=== PATIENT | male | born 1955 | race Caucasian/White ===

== ENCOUNTER 2021-02-03 14:29 | Outpatient (REF) | payer MEDICARE, MEDICAID, SELFPAY | END 2021-02-03 14:30 | disposition home or self-care (01) | LOC: HO.LAB 14:29 | PROVIDERS: PCP Internal Medicine; Visit Provider Internal Medicine | DX: Z20.822 Contact with and (suspected) exposure to COVID-19 (principal) | CPT/HCPCS: C9803; U0003; U0005 ==

== ENCOUNTER → 2022-02-11 11:33 | Outpatient (BNVA) | payer MEDICARE, MEDICAID, SELFPAY | PROVIDERS: PCP Internal Medicine; Visit Provider Urology | DX: C61 Malignant neoplasm of prostate (principal) | CPT/HCPCS: 99202 ==

== ENCOUNTER 2022-03-18 10:51 | Outpatient (REF) | payer MEDICARE, MEDICAID, SELFPAY ==
[2022-03-18 12:35] LABS: Prostate Specific Antigen 4.97 ng/mL (<0.05-4.0)
== END 2022-03-18 10:52 | disposition home or self-care (01) ==
LOC: HO.LAB 10:51
PROVIDERS: PCP Internal Medicine; Visit Provider Urology
DX: Z12.5 Encounter for screening for malignant neoplasm of prostate (principal); C61 Malignant neoplasm of prostate
CPT/HCPCS: 36415; 84153

== ENCOUNTER → 2022-04-07 09:32 | Outpatient (BNVA) | payer MEDICARE, MEDICAID, SELFPAY | PROVIDERS: PCP Internal Medicine; Visit Provider Urology | DX: C61 Malignant neoplasm of prostate (principal) | CPT/HCPCS: 99212 ==

== ENCOUNTER 2022-07-30 09:18 | Outpatient (REF) | payer MEDICARE, MEDICAID, SELFPAY ==
[2022-07-30 11:08] LABS: Prostate Specific Antigen 8.48 ng/mL (<0.05-4.0)
== END 2022-07-30 09:19 | disposition home or self-care (01) ==
LOC: HO.LAB 09:18
PROVIDERS: PCP Internal Medicine; Visit Provider Urology
DX: C61 Malignant neoplasm of prostate (principal); Z12.5 Encounter for screening for malignant neoplasm of prostate
CPT/HCPCS: 36415; 84153

== ENCOUNTER → 2022-08-06 15:24 | Outpatient (BNVA) | payer MEDICARE, MEDICAID, SELFPAY | PROVIDERS: PCP Internal Medicine; Visit Provider Urology | DX: C61 Malignant neoplasm of prostate (principal) | CPT/HCPCS: Q3014 ==

== ENCOUNTER 2022-10-04 08:43 | Day surgery (SDC) | payer MEDICARE, MEDICAID, SELFPAY ==
--- NOTE | 2022-10-01 10:44 | P.CONAN_ITS ---
Documented by User: Codi Olson NP 10/01/22 10:45 HPI - Anesthesia Eval Consult details Narrative: 67yo M for Targeted Prostate Needle Biopsy Pancreatic ca s/p whipple PMFSH Active Problems Active Problems: All Active Problems (Updated 09/29/22 @ 10:41 by Isabel Bain, RN) Prostate cancer (Acute) Past Medical History Medical History (Updated 09/29/22 @ 10:41 by Isabel Bain, RN) Anxiety Chronic abdominal pain Elevated cholesterol GERD (gastroesophageal reflux disease) Hx of hepatitis C Pancreatic cancer Prediabetes Prostate cancer Surgical History Surgical History (Updated 09/29/22 @ 10:41 by Isabel Bain RN) History of Whipple procedure Hx of appendectomy Hx of colonoscopy Hx of right inguinal hernia repair Social History Social History Patient Tobacco Use Status: Current everyday Tobacco user Tobacco use type: Cigarette Cigarettes Per Day: 12 Use of substances other than those prescribed or required for medical reasons: Yes Advance Directives: No Advance Directives Information Provided: Yes Meds Allergies Allergy/AdvReac Type Severity Reaction Status Date / Time Penicillins Allergy Mild Rash Verified 09/29/22 10:34 Home Medications Medication Instructions Recorded Confirmed Last Taken Type atorvastatin 20 mg tablet 20 mg PO DAILY 02/11/22 09/29/22 Unknown History fluoxetine 20 mg capsule 40 mg PO QAM 02/11/22 09/29/22 Unknown History ymmpaz-[id number]-bkdbvll 1 cap PO TID 02/11/22 09/29/22 Unknown History 12,000-38,000-60,000 unit capsule,delayed rel (Creon) lorazepam 0.5 mg tablet 0.5 mg PO TID PRN as directed 02/11/22 09/29/22 Unknown History pantoprazole 40 mg tablet,delayed 40 mg PO DAILY 02/11/22 09/29/22 Unknown History release hydrocodone 5 mg-acetaminophen 325 1 tab PO BID PRN Pain 04/07/22 09/29/22 Unknown History mg tablet tramadol 50 mg tablet 50 mg PO Q6H PRN Pain 04/07/22 09/29/22 Unknown History Exam Exam Date and Time: October 01, 2022 1044 Assessment and Plan Assessment Anesthesia Assessment: Chart Reviewed Documented by User: Pierre Bhagat MD 10/04/22 12:34 [facility] Past Medical History Medical History (Updated 09/29/22 @ 10:41 by Isabel Bain, RN) Anxiety Chronic abdominal pain Elevated cholesterol GERD (gastroesophageal reflux disease) Hx of hepatitis C Pancreatic cancer Prediabetes Prostate cancer Family History Family history of problems with anesthesia: No Surgical History Surgical History (Updated 09/29/22 @ 10:41 by Isabel Bain, RN) History of Whipple procedure Hx of appendectomy Hx of colonoscopy Hx of right inguinal hernia repair History of Problems with Anesthesia: No Social History Social History Patient Tobacco Use Status: Current everyday Tobacco user Tobacco use type: Cigarette Cigarettes Per Day: 12 Use of substances other than those prescribed or required for medical reasons: Yes Advance Directives: No Advance Directives Information Provided: Yes Meds Allergies Allergy/AdvReac Type Severity Reaction Status Date / Time Penicillins Allergy Mild Rash Verified 09/29/22 10:34 Home Medications Medication Instructions Recorded Confirmed Last Taken Type atorvastatin 20 mg tablet 20 mg PO DAILY 02/11/22 09/29/22 Unknown History fluoxetine 20 mg capsule 40 mg PO QAM 02/11/22 09/29/22 Unknown History qisyrf-fjyvngib-vuxgfwm 1 cap PO TID 02/11/22 09/29/22 Unknown History 12,000-38,000-60,000 unit capsule,delayed rel (Creon) lorazepam 0.5 mg tablet 0.5 mg PO TID PRN as directed 02/11/22 09/29/22 Unknown History pantoprazole 40 mg tablet,delayed 40 mg PO DAILY 02/11/22 09/29/22 Unknown History release hydrocodone 5 mg-acetaminophen 325 1 tab PO BID PRN Pain 04/07/22 09/29/22 Unknown History mg tablet tramadol 50 mg tablet 50 mg PO Q6H PRN Pain 04/07/22 09/29/22 Unknown History Exam Airway Mallampati Class: II TM Dist: >3cm Neck ROM: Full Denture: Upper Heart: ok Lungs: ok Assessment and Plan Assessment Anesthesia Assessment: Anesthesia Plan Discussed Final Anesthetic Review Family History of Problems with Anesthesia: No History of Problems with Anesthesia: No NPO: Yes ASA Class: III Final Preanesthetic Review: No Changes in Pt Med Stat, Meds/Allgs Chart Reviewed and Consent Obtained/Reviewed Patient Risk: Intermediate Procedure Risk: Low Anesthetic Plan Anesthetic Plan: GA and Agree w/ Assess. and Plan Disposition: Standard PACU
[2022-10-04 09:14] VITALS: BP 124/69; PULSE 61; RESP 18; O2SAT 98; BMI 25.1
--- NOTE | 2022-10-04 09:56 | MHC.SHP ---
Pre-Procedural Eval Section A Date of Service: 10/04/22 The patient is an INPATIENT: No Changes since office visit: No Cold of Flu in the past 2 weeks, No New Medical Problems, No Changes in Medication and No Patient answered all questions The History & Physical has been completed within 30 days and I have reviewed it.: No Section B Chief Complaint: prostate cancer Details of Present Illness: prostate cancer, targeted biopsy Relevant Social History: None Present Medications: see Short Stay Collaborative assessment Medical History: Significant History History of Previous Operations: Relevant previous surgery/procedure and date(s) Allergies: Allergies Allergy/AdvReac Type Severity Reaction Status Date / Time Penicillins Allergy Mild Rash Verified 09/29/22 10:34 Review of Systems Sugical H&P ROS: Negative: Constitution, Cardiovascular, Respiratory, Neurological, Psychiatric, Hem-Onc, Allergic/Immunologic, Gastrointestinal, Genitourinary, Musculoskeletal, Integumentary, Endocrine and Eyes/Ears/Nose/Throat Exam Surgical H&P Exam: Normal: HEENT, Normal: Heart, Normal: Lungs, Normal: Extremities, Normal: Abdomen, Normal: Skin and Normal: Neurological Plan Diagnosis/Plan: Unchanged ( fusion biopsy) I have reviewed the history and physical and performed a pertinent physical examination on my patient. No changes have occurred unless specified. Time Spent With Patient Time: Total time managing care of this patient today ____ minutes.
[2022-10-04] MEDS: Lactated Ringers 1,000 ML 100 ML IVCONT (11:18)
[2022-10-04] MEDS: levoFLOXacin 500 MG TABLET PO (11:18)
[2022-10-04 12:24] VITALS: BP 121/78; PULSE 64; RESP 16; TEMP 37.1; O2SAT 96
[2022-10-04 12:29] VITALS: BP 122/74; PULSE 60; RESP 16; O2SAT 97
[2022-10-04] MEDS: oxyCODONE HCl Immed Release 5 MG TABLET PO (12:30)
[2022-10-04] MEDS: Acetaminophen 325 MG TABLET 650 MG PO (12:30)
[2022-10-04 12:34] VITALS: BP 126/72; PULSE 59; RESP 16; O2SAT 97
[2022-10-04] MEDS: fentaNYL citrate/PF 100 MCG/2 ML VIAL 25 MCG IVPUSH ×2 (12:34→12:39)
[2022-10-04 12:39] VITALS: BP 129/74; PULSE 64; RESP 16; O2SAT 96
[2022-10-04 12:54] VITALS: BP 111/53; PULSE 64; RESP 16; TEMP 37.1; O2SAT 96
--- NOTE | 2022-12-10 12:38 | W.PM.OPN ---
Operative Note Operative Note Date of Service: 10/04/22 Narrative: Preoperative diagnosis: prostate cancer Postoperative diagnosis: prostate cancer Procedure: 1. transrectal ultrasound measurement of prostate 2. transrectal ultrasound-guided pudendal nerve block 3. MRI-US fusion image registration performed 3. transperineal ultrasound-guided prostate biopsy 12 core including targets Surgeon: Dr. Chi Nunn Anesthetic: Sedation plus local Indications for procedure: Elevated PSA 8.5 Procedure: After informed consent was verified, the patient was brought into the procedure area. Patient identity confirmed. Perioperative antibiotics confirmed. Safety pause time out performed. Anesthesia performed per protocol Ultrasound probe was placed per rectum Focalis software and hardware platform used An ultrasound-guided pudendal nerve block was performed using 10 cc of 1% lidocaine. 8 cc was placed at the base and 2 cc of the apex. Perineal injection of local. Ultrasound placement was made with grid calibration for height and prostate diameter in both the transverse and longitudinal planes. Once grid calibration was confirmed ultrasound acquisition was performed in the transverse fashion. Three dimensional ultrasound model was created. The planned needle targeting based on prior acquisition of MRI imaging was overlaid on the ultrasound images and targets confirmed through ultrasound review. Based on pre -planning evaluation 16 targets had been identified. These included 3 targets of the PI-RADS 3 prostate apex identified lesion/s.. He tolerated the procedure well. Was transferred to stable condition in the PACU. Printed instructions regarding antibiotic use and common side effects such as low-grade temperature, potential infection and bleeding were given Pathology: 12 core prostate biopsy CPT 58823 Modifier 22 for complexity of planning and procedure execution
== END 2022-10-04 14:01 | disposition home or self-care (01) ==
PROVIDERS: PCP Internal Medicine; Visit Provider Urology
PROC: (CPT 55700; principal; 2022-10-04 11:00)
DX: C61 Malignant neoplasm of prostate (principal); R97.20 Elevated prostate specific antigen [PSA]; Z85.07 Personal history of malignant neoplasm of pancreas; Z98.890 Other specified postprocedural states; K21.9 Gastro-esophageal reflux disease without esophagitis; F41.1 Generalized anxiety disorder; E78.00 Pure hypercholesterolemia, unspecified; R73.03 Prediabetes; Z86.19 Personal history of other infectious and parasitic diseases; Z79.899 Other long term (current) drug therapy; Z88.0 Allergy status to penicillin; F17.210 Nicotine dependence, cigarettes, uncomplicated
CPT/HCPCS: 55700; 88305; 88344; J2795; J3010

== ENCOUNTER → 2022-10-04 08:43 | Outpatient (BNV) | payer MEDICARE, MEDICAID, SELFPAY | PROVIDERS: PCP Internal Medicine; Visit Provider Urology | DX: C61 Malignant neoplasm of prostate (principal) | CPT/HCPCS: 55700; 76942 ==

== ENCOUNTER → 2022-10-12 15:06 | Outpatient (BNVA) | payer MEDICARE, MEDICAID, SELFPAY | PROVIDERS: PCP Internal Medicine; Visit Provider Urology ==

== ENCOUNTER 2022-10-29 13:47 | Outpatient (AMB) | payer MEDICARE, MEDICAID, SELFPAY ==
--- NOTE | 2022-10-29 13:48 | MHC.OFFVIS ---
Intake Intake Visit Reasons: post op biopsy results Intake Note: Patient is present for Telephone Biopsy results Urology Med: Finasteride Antibiotic Allergy: Penicillins Blood Thinner: None Allergies Penicillins Allergy (Mild, Verified 10/29/22 13:49) Rash HPI HPI Comments History of Present Illness Details Rey is a pleasant male. He is a patient Dr. Blum. He is seen for the following urologic conditions - prostate cancer Telemedicine Evaluation 15 min Consultation D[employer]im[employer] Yonas Video attempted Discussion regarding fusion biopsy Overall cancer remains grade group 1 with lower overall volume Continue finasteride Repeat PSA in 4 months PSA 04/08 5.0, 08/08 8.5 Prostate cancer grade group 1 5/12 cores, clinically June 202110/08 ultrasound MRI fusion biopsy [place] score: 3+3=6 Number cores positive: 1 Total number of cores: 15 PNI NAD 08/0722 grade group 1, perineural invasion Prostate cancer diagnosed and [facility] Urology 08/07 Initial PSA 4.7, T1c DiMico criteria low risk, grade group 1 Pathology findings - LMA 30%, LLA 5% PNI+, LMM 30%, LLB 30%, ELVIS 25% PNI+ - 120/1200 = 10% volume Imaging - MRI 08/07 PI-RADS 4 lesion left posterior medial apex with capsular abutment but no evidence of HEMA - prostatic volume 40 cc Past medical history significant for MRI and stenting 2008, pancreatic neoplasm 2019 with Whipple in neoadjuvant therapy [facility] Medical History Anxiety Chronic abdominal pain Elevated cholesterol GERD (gastroesophageal reflux disease) Hx of hepatitis C Pancreatic cancer Prediabetes Prostate cancer Surgical History History of Whipple procedure Hx of appendectomy Hx of colonoscopy Hx of right inguinal hernia repair Social History Patient Tobacco Use Status: Current everyday Tobacco user Tobacco use type: Cigarette Cigarettes Per Day: 12 Review of Systems Const All systems reviewed & are unremarkable except as noted in HPI and below Reports no additional complaints Resp Reports no additional complaints GI Reports no additional complaints Reports as per HPI Musc Reports no additional complaints Physical Exam Telemedicine evaluation Appropriate responses Regular breathing rate and rhythm HEENT Head: Yes normal to inspection Ears: hearing grossly normal bilaterally Eyes General: appearance normal, both eyes and all related structures Neck Neck: Yes normal visual inspection Chest Chest palpation & inspection: normal inspection of the chest Resp Effort & Inspection: normal respiratory effort and able to speak in complete sentences Assessment & Plan Assessment & Plan (1) Prostate cancer: Code(s): C61 - Malignant neoplasm of prostate Plan Four month follow-up Orders: Orders PSA,Total (Free>4and<10) 4 Months C61 - Malignant neoplasm of prostate Medications: Refilled finasteride 5 mg PO DAILY 90 days 90 tabs 1RF Patient Instructions: Imaging studies, laboratory and physical exam results were discussed and reviewed in detail. No major barriers to patient understanding were identified. An opportunity to ask questions regarding the treatment plan was provided. All questions were answered. The patient expressed understanding and agreement with the above treatment plan. The patient is aware they should contact our office by phone for worsening of their current condition or the appearance of new urologic symptoms. Compliance is encouraged with any medications and followup testing that is ordered. It is a privilege to participate in the urologic care of your patient. If you have any questions or concerns regarding treatment for the above conditions, or other urologic issues, please do not hesitate to contact me. The office telephone contact is [phone]. This note is constructed using voice recognition software. While every effort has been made to ensure accuracy sushi chef errors may have been included. Yours sincerely, Dr Chi Nunn MD, [facility] - Urology Providers of Expert, Compassionate Care for the Genitourinary System Telehealth Telehealth Location of provider rendering services: practice address Location of patient: address on file Patient Identification confirmed using: Name, : Yes Telehealth method: video Patient verbally consented to treatment: Yes Patient verbally consented to billing insurance company: Yes Patient informed of any privacy concerns related to visit: Yes Coding Level of Care Code Tele Est Pt Level 3 (38719) Diagnoses Prostate cancer C61
== END 2022-10-29 14:13 | disposition home or self-care (01) ==
LOC: HO.HUSH 13:47
PROVIDERS: PCP Internal Medicine; Visit Provider Urology
DX: C61 Malignant neoplasm of prostate (principal)
CPT/HCPCS: 99213

== ENCOUNTER → 2022-10-29 13:47 | Outpatient (BNVA) | payer MEDICARE, MEDICAID, SELFPAY | PROVIDERS: PCP Internal Medicine; Visit Provider Urology | DX: C61 Malignant neoplasm of prostate (principal) | CPT/HCPCS: Q3014 ==

== ENCOUNTER 2023-02-25 14:24 | Outpatient (REF) | payer MEDICARE, MEDICAID, SELFPAY ==
[2023-02-25 15:43] LABS: Prostate Specific Antigen 1.84 ng/mL (<0.05-4.0)
== END 2023-02-25 14:25 | disposition home or self-care (01) ==
LOC: HO.LAB 14:24
PROVIDERS: PCP Internal Medicine; Visit Provider Urology
DX: C61 Malignant neoplasm of prostate (principal); Z12.5 Encounter for screening for malignant neoplasm of prostate
CPT/HCPCS: 36415; 84153

== ENCOUNTER 2023-03-02 13:08 | Outpatient (AMB) | payer MEDICARE, MEDICAID, SELFPAY ==
--- NOTE | 2023-03-02 13:18 | A.OFFVIS_ITS ---
Intake Intake Visit Reasons: 4m/PSA(set) Intake Note: Patient is Present for Follow Up PSA Urology Medication: Finasteride Antibiotic Allergies: Penicillins Blood Thinners: None Allergies Penicillins Allergy (Mild, Verified 03/02/23 13:19) Rash HPI HPI Comments History of Present Illness Details Rey is a pleasant male. He is a patient Dr. Blum. He is seen for the following urologic conditions - prostate cancer - erectile dysfunction Significant fall in PSA 6 month follow-up labs With question of erectile dysfunction - suggest trial tadalafil - prescription provided PSA 04/08 5.0, 08/08 8.5, 03/10 1.8 Prostate cancer grade group 1 5/ cores, clinically June 202110/08 ultrasound MRI fusion biopsy [place] score: 3+3=6 Number cores positive: 1 Total number of cores: 15 PNI NAD 08/0722 grade group 1, perineural invasion Prostate cancer diagnosed and [facility] Urology 08/07 Initial PSA 4.7, T1c DiMico criteria low risk, grade group 1 Pathology findings - LMA 30%, LLA 5% PNI+, LMM 30%, LLB 30% , ELVIS 25% PNI+ - 120/1200 = 10% volume Imaging - MRI 08/07 PI-RADS 4 lesion left posteri or medial apex with capsular abutment but no evidence of HEMA - prostatic volume 40 cc Past medical history significant for MRI and stenting 2008, pancreatic neoplasm 2019 with Whipple in neoadjuvant therapy [facility] Medical History Chronic abdominal pain Anxiety Elevated cholesterol GERD (gastroesophageal reflux disease) Hx of hepatitis C Prostate cancer Prediabetes Pancreatic cancer Surgical History History of Whipple procedure Hx of right inguinal hernia repair Hx of colonoscopy Hx of appendectomy Social History Patient Tobacco Use Status: Current everyday Tobacco user Tobacco use type: Cigarette Cigarettes Per Day: 12 Review of Systems Const Denies chills and Denies fever(s) Card Reports no additional complaints and Denies syncope Resp Denies cough GI Denies abdominal pain and Denies heartburn Reports as per HPI and Denies change in libido Neuro Denies syncope Psych Denies change in libido Endo Denies change in libido Physical Exam Const General: cooperative, healthy appearing, comfortable and no acute distress Orientation/consciousness: patient oriented x3 HEENT Face and sinus: Yes normal facial exam Mouth: moist mucous membranes Neck Neck: Yes normal visual inspection, Yes full ROM and Yes trachea midline Chest Chest palpation & inspection: normal inspection of the chest Resp Effort & Inspection: normal respiratory effort, able to speak in complete sentences and no respiratory distress GI Inspection: Yes normal to inspection Back/Spine/Pelvis Cervical Spine: normal cervical lordosis Thoracic/Lumbar Spine: thoracic and lumbar spine normal to inspection Skin General skin exam: no rashes or lesions noted Neuro General: patient oriented x3, gait normal, tone normal and moves all extremities Extrem General: Yes normal to inspection and Yes capillary refill normal Assessment & Plan Assessment & Plan (1) Erectile dysfunction: Code(s): N52.9 - Male erectile dysfunction, unspecified Qualifiers: Erectile dysfunction type: vasculogenic Vasculogenic erectile dysfunction type: due to arterial insufficiency Qualified Code(s): N52.01 - Erectile dysfunction due to arterial insufficiency (2) Prostate cancer: Code(s): C61 - Malignant neoplasm of prostate Plan Trial tadalafil Six month follow-up Orders: Orders Prostate Specific Antigen 02/25/23 C61 - Malignant neoplasm of prostate Prostate Specific Antigen 6 Months C61 - Malignant neoplasm of prostate Medications: New tadalafil On demand medication take 60 minutes before intended activity 20 mg PO ONCE PRN 30 tabs 0RF sexual activity 30 days C61 - Malignant neoplasm of prostate Patient Instructions: Imaging studies, laboratory and physical exam results were discussed and reviewe d in detail. No major barriers to patient understanding were identified. An opportunity to ask questions regarding the treatment plan was provided. All questions were answered. The patient expressed understanding and agreement with the above treatment plan. The patient is aware they should contact our office by phone for worsening of their current condition or the appearance of new urologic symptoms. Compliance is encouraged with any medications and followup testing that is ordered. It is a privilege to participate in the urologic care of your patient. If you have any questions or concerns regarding treatment for the above conditions, or other urologic issues, please do not hesitate to contact me. The office telephone contact is [phone]. This note is constructed using voice recognition software. While every effort has been made to ensure accuracy entry level manager errors may have been included. Yours sincerely, Dr Chi Nunn MD, [facility] - Urology Providers of Expert, Compassionate Care for the Genitourinary System Coding Level of Care Code Est Pt Level 4 (49548) Diagnoses Erectile dysfunction due to arterial insufficiency N52.01 Erectile dysfunction type: vasculogenic Vasculogenic erectile dysfunction type: due to arterial insufficiency Prostate cancer C61
== END 2023-03-02 13:55 | disposition home or self-care (01) ==
PROVIDERS: PCP Internal Medicine; Visit Provider Urology
DX: C61 Malignant neoplasm of prostate (principal); N52.01 Erectile dysfunction due to arterial insufficiency
CPT/HCPCS: 99214

== ENCOUNTER → 2023-03-02 13:08 | Outpatient (BNVA) | payer MEDICARE, MEDICAID, SELFPAY | PROVIDERS: PCP Internal Medicine; Visit Provider Urology | DX: N52.01 Erectile dysfunction due to arterial insufficiency (principal); C61 Malignant neoplasm of prostate | CPT/HCPCS: 99212 ==

== ENCOUNTER 2023-08-25 11:34 | Outpatient (REF) | payer MEDICARE, MEDICAID, SELFPAY ==
[2023-08-25 12:58] LABS: Prostate Specific Antigen 1.52 ng/mL (<0.05-4.0)
== END 2023-08-25 11:35 | disposition home or self-care (01) ==
LOC: HO.LAB 11:34
PROVIDERS: PCP Internal Medicine; Visit Provider Urology
DX: C61 Malignant neoplasm of prostate (principal); Z12.5 Encounter for screening for malignant neoplasm of prostate
CPT/HCPCS: 36415; 84153

== ENCOUNTER 2023-08-30 13:27 | Outpatient (AMB) | payer MEDICARE, MEDICAID, SELFPAY ==
--- NOTE | 2023-08-30 13:38 | MHC.OFFVIS ---
Intake Visit Reasons: 6M PSA/Med Review(set/Tadalafil) Intake Note: Patient is Present for Follow Up Urology Medication: Finasteride, Tadalafil (Patient states he is not taking tadalafil much) Antibiotic Allergies: Penicillins Blood Thinners:none Allergies Penicillins Allergy (Mild, Verified 08/30/23 13:39) Rash Medication List - Last Reconciled 08/30/23 by Chi Nunn MD atorvastatin 20 mg PO DAILY finasteride 5 mg PO DAILY 90 days fluoxetine 40 mg PO QAM hydrocodone-acetaminophen 5-325 mg 1 tab PO BID PRN goybcr-jpvmlubi-zxxkniz 12,000-38,000 -60,000 unit (Creon) 1 cap PO TID lorazepam 0.5 mg PO TID PRN pantoprazole 40 mg PO DAILY tadalafil 20 mg PO ONCE PRN 30 days HPI Comments Details: Rey is a pleasant male. He is a patient Dr. Blum. He is seen for the following urologic conditions - prostate cancer - erectile dysfunction PSA remains low Follow-up trial tadalafil PSA 04/08 5.0, 08/08 8.5, 03/10 1.8, 08/09 1.5 Implement finasteride cycling - calendar month Has not tried tadalafil Prostate cancer grade group 1 / cores, clinically June 202110/08 ultrasound MRI fusion biopsy [place] score: 3+3=6 Number cores positive: 1 Total number of cores: 15 PNI NAD 08/0722 grade group 1, perineural invasion Prostate cancer diagnosed and [facility] U[facility] 08/07 Initial PSA 4.7, T1c DiMico criteria low risk, grade group 1 Pathology findings - LMA 30%, LLA 5% PNI+, LMM 30%, LLB 30%, ELVIS 25% PNI+ - 120/1200 = 10% volume Imaging - MRI 08/07 PI-RADS 4 lesion left posterior medial apex with capsular abutment but no evidence of HEMA - prostatic volume 40 cc Past medical history significant for MRI and stenting 2008, pancreatic neoplasm 2019 with Whipple in neoadjuvant therapy Erectile dysfunction Tadalafil 20 mg on demand PFSH Medical History Chronic abdominal pain Anxiety Elevated cholesterol GERD (gastroesophageal reflux disease) Hx of hepatitis C Prostate cancer Prediabetes Pancreatic cancer Surgical History History of Whipple procedure Hx of right inguinal hernia repair Hx of colonoscopy Hx of appendectomy Social History Patient Tobacco Use Status: Current everyday Tobacco user Tobacco use type: Cigarette Cigarettes Per Day: 12 Assessment & Plan Assessment & Plan (1) Prostate cancer: Code(s): C61 - Malignant neoplasm of prostate Category: Medical (2) Erectile dysfunction: Code(s): N52.9 - Male erectile dysfunction, unspecified Category: Medical Qualifiers: Erectile dysfunction type: vasculogenic Vasculogenic erectile dysfunction type: due to arterial insufficiency Qualified Code(s): N52.01 - Erectile dysfunction due to arterial insufficiency Plan Six-month follow-up PSA Orders: Orders Prostate Specific Antigen 6 Months C61 - Malignant neoplasm of prostate Patient Instructions: Imaging studies, laboratory and physical exam results were discussed and reviewed in detail. No major barriers to patient understanding were identified. An opportunity to ask questions regarding the treatment plan was provided. All questions were answered. The patient expressed understanding and agreement with the above treatment plan. The patient is aware they should contact our office by phone for worsening of their current condition or the appearance of new urologic symptoms. Compliance is encouraged with any medications and followup testing that is ordered. It is a privilege to participate in the urologic care of your patient. If you have any questions or concerns regarding treatment for the above conditions, or other urologic issues, please do not hesitate to contact me. The office telephone contact is [phone]. This note is constructed using voice recognition software. While every effort has been made to ensure accuracy leaf sucker operator errors may have been included. Yours sincerely, Dr Chi Nunn MD, [facility] - Urology Providers of Expert, Compassionate Care for the Genitourinary System Coding Level of Care Code Est Pt Level 3 (15836) Complex EM visit Add On G2211 Diagnoses Prostate cancer C61 Erectile dysfunction due to arterial insufficiency N52.01 Erectile dysfunction type: vasculogenic Vasculogenic erectile dysfunction type: due to arterial insufficiency
== END 2023-08-30 13:47 | disposition home or self-care (01) ==
PROVIDERS: PCP Internal Medicine; Visit Provider Urology
DX: C61 Malignant neoplasm of prostate (principal); N52.01 Erectile dysfunction due to arterial insufficiency
CPT/HCPCS: 99213; G2211

== ENCOUNTER → 2023-08-30 13:27 | Outpatient (BNVA) | payer MEDICARE, MEDICAID, SELFPAY | PROVIDERS: PCP Internal Medicine; Visit Provider Urology | DX: C61 Malignant neoplasm of prostate (principal); N52.01 Erectile dysfunction due to arterial insufficiency | CPT/HCPCS: 99212 ==

== ENCOUNTER 2024-02-09 10:58 | Outpatient (REF) | payer MEDICARE, MEDICAID, SELFPAY ==
[2024-02-09 12:36] LABS: Prostate Specific Antigen 1.85 ng/mL (<0.05-4.0)
== END 2024-02-09 10:59 | disposition home or self-care (01) ==
LOC: HO.LAB 10:58
PROVIDERS: PCP Internal Medicine; Visit Provider Urology
DX: C61 Malignant neoplasm of prostate (principal); Z12.5 Encounter for screening for malignant neoplasm of prostate
CPT/HCPCS: 36415; 84153

== ENCOUNTER 2024-02-22 14:37 | Outpatient (AMB) | payer MEDICARE, MEDICAID, SELFPAY ==
--- NOTE | 2024-02-22 14:42 | MHC.OFFVIS ---
Intake Visit Reasons: 6M/PSA(set) Intake Note: Patient is present for 6M/PSA Urology Medication:FINASTERIDE Antibiotic Allergy:PENICILLIN Blood Thinner:NONE Inspector Electromechanical Required: No Allergies Penicillins Allergy (Mild, Verified 02/22/24 14:44) Rash HPI Comments Details: Rey is a pleasant male. He is a patient Dr. Blum. He is seen for the following urologic conditions - prostate cancer - erectile dysfunction PSA remains low Follow-up trial tadalafil PSA 04/08 5.0, 08/08 8.5, 03/10 1.8, 08/09 1.5. 02/08 1.8 Implement finasteride cycling - calendar month Has not tried tadalafil Prostate cancer grade group 1 08/27 cores, clinically June 202110/08 ultrasound MRI fusion biopsy [place] score: 3+3=6 Number cores positive: 1 Total number of cores: 15 PNI NAD 08/0722 grade group 1, perineural invasion Prostate cancer diagnosed and [facility] Urology 08/07 Initial PSA 4.7, T1c DiMico criteria low risk, grade group 1 Pathology findings - LMA 30%, LLA 5% PNI+, LMM 30%, LLB 30%, ELVIS 25% PNI+ - 120/1200 = 10% volume Imaging - MRI 08/07 PI-RADS 4 lesion left posterior medial apex with capsular abutment but no evidence of HEMA - prostatic volume 40 cc Past medical history significant for MRI and stenting 2008, pancreatic neoplasm 2019 with Whipple in neoadjuvant therapy Erectile dysfunction Tadalafil 20 mg on demand PFSH Medical History Chronic abdominal pain Anxiety Elevated cholesterol GERD (gastroesophageal reflux disease) Hx of hepatitis C Prostate cancer Prediabetes Pancreatic cancer Surgical History History of Whipple procedure Hx of right inguinal hernia repair Hx of colonoscopy Hx of appendectomy Social History Patient Tobacco Use Status: Current everyday Tobacco user Tobacco use type: Cigarette Cigarettes Per Day: 12 Physical Exam Const General: cooperative, healthy appearing, comfortable and no acute distress Neck Neck: Yes normal visual inspection Chest Chest palpation & inspection: normal inspection of the chest Resp Effort & Inspection: normal respiratory effort and able to speak in complete sentences GI Inspection: Yes normal to inspection Penis: normal penis and circumcised Meatus: meatus normal Scrotum: scrotum normal, cremasteric reflex present, no hydroceles and no inguinal hernias Testes: Testes normal and epididymides normal Assessment & Plan Assessment & Plan (1) Prostate cancer: Code(s): C61 - Malignant neoplasm of prostate Category: Medical (2) Erectile dysfunction: Code(s): N52.9 - Male erectile dysfunction, unspecified Category: Medical Qualifiers: Erectile dysfunction type: vasculogenic Vasculogenic erectile dysfunction type: due to arterial insufficiency Qualified Code(s): N52.01 - Erectile dysfunction due to arterial insufficiency Plan Six-month follow-up PSA Orders: Orders Prostate Specific Antigen 6 Months C61 - Malignant neoplasm of prostate Patient Instructions: Imaging studies, laboratory and physical exam results were discussed and reviewed in detail. No major barriers to patient understanding were identified. An opportunity to ask questions regarding the treatment plan was provided. All questions were answered. The patient expressed understanding and agreement with the above treatment plan. The patient is aware they should contact our office by phone for worsening of their current condition or the appearance of new urologic symptoms. Compliance is encouraged with any medications and followup testing that is ordered. It is a privilege to participate in the urologic care of your patient. If you have any questions or concerns regarding treatment for the above conditions, or other urologic issues, please do not hesitate to contact me. The office telephone contact is [phone]. This note is constructed using voice recognition software. While every effort has been made to ensure accuracy supervisor motor vehicle assembly errors may have been included. Yours sincerely, Dr Chi Nunn MD, [facility] - Urology Providers of Expert, Compassionate Care for the Genitourinary System Coding Level of Care Code Est Pt Level 3 (33291) Diagnoses Prostate cancer C61 Erectile dysfunction due to arterial insufficiency N52.01 Erectile dysfunction type: vasculogenic Vasculogenic erectile dysfunction type: due to arterial insufficiency
== END 2024-02-22 15:27 | disposition home or self-care (01) ==
LOC: HO.HUSH 14:38
PROVIDERS: PCP Internal Medicine; Visit Provider Urology
DX: C61 Malignant neoplasm of prostate (principal); N52.01 Erectile dysfunction due to arterial insufficiency
CPT/HCPCS: 99213

== ENCOUNTER → 2024-02-22 14:37 | Outpatient (BNVA) | payer MEDICARE, MEDICAID, SELFPAY | PROVIDERS: PCP Internal Medicine; Visit Provider Urology | DX: C61 Malignant neoplasm of prostate (principal); N52.01 Erectile dysfunction due to arterial insufficiency | CPT/HCPCS: 99212 ==

== ENCOUNTER 2024-08-16 11:53 | Outpatient (REF) | payer MEDICARE, MEDICAID, SELFPAY ==
[2024-08-16 12:53] LABS: Prostate Specific Antigen 2.65 ng/mL (<0.05-4.0)
== END 2024-08-16 11:54 | disposition home or self-care (01) ==
LOC: HO.LAB 11:53
PROVIDERS: PCP Internal Medicine; Visit Provider Urology
DX: C61 Malignant neoplasm of prostate (principal); Z12.5 Encounter for screening for malignant neoplasm of prostate
CPT/HCPCS: 36415; 84153

== ENCOUNTER 2024-08-22 12:58 | Outpatient (AMB) | payer MEDICARE, MEDICAID, SELFPAY ==
--- NOTE | 2024-08-22 12:59 | A.OFFVIS_ITS ---
Intake Visit Reasons: 6m/PSA Intake Note: Patient is present for 6M/PSA Urology Medication:FINASTERIDE Antibiotic Allergy:PENICILLINS Blood Thinner:NONE Demolition Worker Required: No Allergies Penicillins Allergy (Mild, Verified 08/22/24 13:00) Rash HPI Comments Details: Rey is a pleasant male. He is a patient Dr. Blum. He is seen for the following urologic conditions - prostate cancer - erectile dysfunction Telemedicine Evaluation 15 min Consultation [employer] PSA remains low Happy with current situation PSA 04/08 5.0, 08/08 8.5, 03/10 1.8, 08/09 1.5. 02/08 1.8, 09/09 2.6 Implement finasteride cycling - calendar Prostate cancer grade group 1 08/27 cores, clinically June 202110/08 ultrasound MRI fusion biopsy [place] score: 3+3=6 Number cores positive: 1 Total number of cores: 15 PNI NAD 08/0722 grade group 1, perineural invasion Prostate cancer diagnosed and [facility] Urology 08/07 Initial PSA 4.7, T1c DiMico criteria low risk, grade group 1 Pathology findings - LMA 30%, LLA 5% PNI+, LMM 30%, LLB 30%, ELVIS 25% PNI+ - 120/1200 = 10% volume Imaging - MRI 08/07 PI-RADS 4 lesion left posterior medial apex with capsular abutment but no evidence of HEMA - prostatic volume 40 cc Past medical history significant for MRI and stenting 2008, pancreatic neoplasm 2019 with Whipple in neoadjuvant therapy Erectile dysfunction Tadalafil 20 mg on demand PFSH Medical History Chronic abdominal pain Anxiety Elevated cholesterol GERD (gastroesophageal reflux disease) Hx of hepatitis C Prostate cancer Prediabetes Pancreatic cancer Surgical History History of Whipple procedure Hx of right inguinal hernia repair Hx of colonoscopy Hx of appendectomy Social History Patient Tobacco Use Status: Current everyday Tobacco user Tobacco use type: Cigarette Cigarettes Per Day: 12 Review of Systems Const All systems reviewed & are unremarkable except as noted in HPI and below Reports no additional complaints Resp Reports no additional complaints GI Reports no additional complaints Reports as per HPI [facility] [place] Reports no additional complaints Physical Exam Telemedicine evaluation Appropriate responses Regular breathing rate and rhythm HEENT Head: Yes normal to inspection Ears: hearing grossly normal bilaterally Eyes General: appearance normal, both eyes and all related structures Neck Neck: Yes normal visual inspection Chest Chest palpation & inspection: normal inspection of the chest Resp Effort & Inspection: normal respiratory effort and able to speak in complete sentences Telehealth Telehealth Location of provider rendering services: practice address Location of patient: address on file Patient Identification confirmed using: Name, : Yes Telehealth method: voice only Patient verbally consented to treatment: Yes Patient verbally consented to billing insurance company: Yes Patient informed of any privacy concerns related to visit: Yes Assessment & Plan Assessment & Plan (1) Prostate cancer: Code(s): C61 - Malignant neoplasm of prostate Category: Medical (2) Erectile dysfunction: Code(s): N52.9 - Male erectile dysfunction, unspecified Category: Medical Qualifiers: Erectile dysfunction type: vasculogenic Vasculogenic erectile dysfunction type: due to arterial insufficiency Qualified Code(s): N52.01 - Erectile dysfunction due to arterial insufficiency Plan Five month follow-up PSA Orders: Orders Prostate Specific Antigen 5 Months C61 - Malignant neoplasm of prostate Medications: Refilled finasteride 5 mg PO DAILY 90 days 90 tabs 1RF Patient Instructions: This note is constructed using voice recognition software. While every effort has been made to ensure accuracy rn unit manager errors may have been included. Imaging studies, laboratory and physical exam results were discussed and reviewed in detail. No major barriers to patient understanding were identified. An opportunity to ask questions regarding the treatment plan was provided. All questions were answered. The patient expressed understanding and agreement with the above treatment plan. The patient is aware they should contact our office by phone for worsening of their current condition or the appearance of new urologic symptoms. Compliance is encouraged with any medications and followup testing that is ordered. It is a privilege to participate in the urologic care of your patient. If you have any questions or concerns regarding treatment for the above conditions, or other urologic issues, please do not hesitate to contact me. The office telephone contact is [phone]. Sincerely, Dr Chi Nunn MD, [facility] - Urology Compassionate Specialist Care for the Genitourinary System Coding Level of Care Code Tele Est Pt Level 3 (61668) Complex EM visit Add On G2211 Diagnoses Prostate cancer C61 Erectile dysfunction due to arterial insufficiency N52.01 Erectile dysfunction type: vasculogenic Vasculogenic erectile dysfunction type: due to arterial insufficiency
== END 2024-08-22 13:42 | disposition home or self-care (01) ==
LOC: HO.HUSH 12:58
PROVIDERS: PCP Internal Medicine; Visit Provider Urology
DX: C61 Malignant neoplasm of prostate (principal); N52.01 Erectile dysfunction due to arterial insufficiency
CPT/HCPCS: 99213; G2211

== ENCOUNTER → 2024-08-22 12:58 | Outpatient (BNVA) | payer MEDICARE, MEDICAID, SELFPAY | PROVIDERS: PCP Internal Medicine; Visit Provider Urology | DX: Z13.89 Encounter for screening for other disorder (principal) ==

== ENCOUNTER 2024-11-14 09:28 | Outpatient (AMB) | payer MEDICARE, MEDICAID, SELFPAY ==
--- NOTE | 2024-11-14 09:31 | A.OFFPC_ITS ---
Vital Signs 11/14/24 09:37 Height 5 ft 11.06 in Weight 181 lb 2 oz BMI 25.2 BP 140/70 H Blood Pressure Location Lt brachial Position Sitting Respiration 20 Pulse 73 Pulse Source Pulse Oximeter Temp 98.4 F Temp Source Temporal Artery Scan Pulse Oximetry (%) 95 Oxygen Delivery Method Room Air Intake Visit Reasons: Establish Care Personal Banking Assistant Required: No Accompanied by: Self / Same As Patient Allergies Penicillins Allergy (Mild, Verified 11/14/24 10:22) Rash Medication List - Last Reconciled 11/14/24 by Angelica Pena PA-C apixaban (Eliquis) 5 mg PO BID atorvastatin 20 mg PO DAILY finasteride 5 mg PO DAILY 90 days fluoxetine 40 mg PO QAM hydrocodone-acetaminophen 5-325 mg 1 tab PO BID PRN codtqf-dqivnweb-bqjdujp 15,000-47,000 -63,000 unit (Zenpep) 1 cap PO TID pantoprazole 40 mg PO DAILY pioglitazone 30 mg PO DAILY zolpidem 10 mg PO BEDTIME Tobacco use date assessed: 11/14/24 Fall risk assessment: No Falls in past year Last assessed Fall Risk: 11/14/24 Dental Screening Dental Screen Date: 11/14/24 Did you have a dental visit in the last 12 months?: No Did you have a dental problem in the last 6 months where you did not have access to dental care?: No Was dental information given to patient?: Patient has dentist HPI Establish Care HPI Details The patient is a 69-year-old male presenting for a new patient appointment as patient was a patient of Dr. Rick. He is presenting for management of multiple chronic conditions including pancreatic cancer, prostate cancer, rheumatoid arthritis, and anxiety. The patient has a history of pancreatic cancer, for which he was followed by Dr. Blum every two months after being cut loose by the cancer center five years post-treatment recently within the past six-month. He was advised to have a yearly chest x-ray, which Dr. Blum deemed unnecessary. The patient reports no explicit mention of remission by his healthcare providers. He reports intermittent abdominal pains for which he takes hydrocodone-acetaminophen 5-325 he is prescribed 1 tablet 3 times a day although patient reports he normally t akes this once a day therefore will decrease dose to once daily and reassess may continue weaning down. Patient understands and agrees with this plan. The patient also has prostate cancer, for which he is currently on medication. He is under the care of Dr. Nunn for this condition. The patient experiences chronic stomach pain and diarrhea following the surgical removal of half of his stomach and gallbladder. He attributes this pain to his pancreatic cancer treatment and is on pain medication for relief. He has a history of rheumatoid arthritis, which contributes to his chronic pain. The patient reports swollen hands and is on pain medication, although he is uncertain if it is specifically for arthritis. The patient has a history of hepatitis C, which has been treated. He has not seen a product management internship since this treatment. The patient reports anxiety and was previously on lorazepam, which was discontinued due to concurrent use with pain medication. He is currently on fluoxetine for anxiety and depression, which he has been taking for 25 years. The patient experienced a pulmonary embolism, which was attributed to his cancer. He is currently on Eliquis for this condition. The patient reports tinnitus and hearing loss, which he attributes to his past medical history. He has tried aouy-jfn-hwfhmkv remedies without success and has not pursued further evaluation. Recently, the patient developed a dry cough and congestion following a sore throat and fever. He suspects it might have been COVID-19 but did not test for it. He is open to trying antibiotics to alleviate these symptoms. He is concerned due to intermittent dizziness and hand tremors. He is concerned that it maybe Parkinson's disease. A few weeks ago he almost had a fall due to the dizziness, unsteady on his feet and hand tremors. He denies any constant dizziness, change in vision, paresthesias, focal weakness, confusion or any other symptoms related to this. He denies any acute symptoms today. Patient reports he will need a refill on his machine to check his glucose due to it broke. Social History - Substance Use: Former marijuana use, c eased after pancreatic cancer diagnosis due to lack of energy. - Functional Status: Engages in activiti es such as cutting grass, changing car oil, and grocery shopping with his . [facility] Medical History (Updated 11/14/24 @ 10:58 by Angelica Pena PA-C) Tinnitus Anticoagulated on Eliquis History of pulmonary embolism Rheumatoid arthritis Benign paroxysmal vertigo, bilateral Acute cerebellar ataxia Essential tremor History of pancreatic cancer Cough Dizziness of unknown cause Gait disturbance Chronic abdominal pain Anxiety Elevated cholesterol GERD (gastroesophageal reflux disease) Hx of hepatitis C Prostate cancer Prediabetes Pancreatic cancer Surgical History History of Whipple procedure Hx of right inguinal hernia repair Hx of colonoscopy Hx of appendectomy Family History Father Lung cancer Mother High blood pressure Social History Housing: Apartment Alcohol intake: current Alcohol intake frequency: does not drink Patient Tobacco Use Status: Current everyday Tobacco user Tobacco use type: Cigarette Cigarettes Per Day: 10 service: No Current occupational status: retired Cognitive needs: Yes (cane) Hearing needs: No Vision needs: Yes (readidng glasses) Questionnaire PHQ-9 Over the last 2 weeks, how often have you been bothered by any of the following problems? 1. Little interest or pleasure in doing things: nearly every day 2. Feeling down, depressed, or hopeless: more than half the days 3. Trouble falling or staying asleep, or sleeping too much: several days 4. Feeling tired or having little energy: nearly every day 5. Poor appetite or overeating: nearly every day 6. Feeling bad about yourself - or that you are a failure or have let yourself or your family down: not at all 7. Trouble concentrating on things, such as reading the newspaper or watching television: not at all 8. Moving or speaking so slowly that other people could have noticed. Or the opposite - being so fidgety or restless that you have been moving around a lot more than usual: nearly every day 9. Thoughts that you would be better off or of hurting yourself in some way: not at all Total score: 15 Depression Screening Interpretation: Positive Depression Screening Follow-up: Existing condition and In treatment Depression Screening Done: Yes 43500 - PHQ-9 Billing: Yes Source: Developed by Drs. Valeriano Campuzano, Smitha Mayfield, Ronald Caballero and colleagues, with an educational tyrone from [employer]. Thrive Questionnaire Date Thrive assessed: 11/14/24 I am a: Patient What is your living situation today?: I have a steady place to live Within the past 12 months, did the food you bought not last and you didn't have the money to get more?: Never true Within the past 12 months, did you worry whether your food would run out before you got money to buy more?: Never true Do you have trouble paying for medicines?: No Do you have trouble getting transportation to medical appointments?: No Do you have trouble paying your heating and electricity bill?: No Do you have trouble taking care of your child, family member or friend?: No Do you have trouble with day-to-day activities such as bathing, preparing meals, shopping, managing finances, etc.?: No Are you currently unemployed and looking for a job?: No Are you interested in more education?: No Please select the resources that you would like help with: None Currently or been in a relationship where the following occur: No concerns reported THRIVE Score: 0 AUDIT C Alcohol Use Questionnaire (AUDIT-C) 1. How often do you have a drink containing alcohol?: Never 3. How often do you have six or more drinks on one occasion?: Never Total Score: 0 Score Reviewed/Action Taken: No ZEYAD-7 AMB Questionnaire ZEYAD-7 Date ZEYAD - 7 assessed: 11/14/24 Feeling nervous, anxious, or on edge: 3 = Nearly every day Not being able to stop or control worryin = More than half the days Worrying too much about different things: 3 = Nearly every day Trouble relaxin = Nearly every day Being so restless that it is hard to sit still: 1 = Several days Becoming easily annoyed or irritable: 2 = More than half the days Feeling afraid as if something awful might happen: 3 = Nearly every day Total ZEYAD-7 score (0-4 normal; 5-9 mild; 10-14 moderate; 15-21 severe): 17 Source: Developed by Drs. Valeriano Campuzano, Smitha Mayfield, Ronald Caballero and colleagues, with an educational tyrone from [employer]. ZEYAD-7 Assessment Billing ZEYAD-7 Assessment Tool: ZEYAD-7 Assessment 12565 Review of Systems Const Details: - Gastrointestinal: Reports chronic stomach pain and diarrhea following meals. - Musculoskeletal: Reports swollen hands and joint pain. - Neurological: Reports tinnitus and hearing loss. - Respiratory: Reports dry cough and congestion. Physical exam (Primary Care) Vital Signs: Last Vital Signs Temp 98.4 F 11/14/24 09:37 Pulse 73 11/14/24 09:37 Resp 20 11/14/24 09:37 BP 140/70 H 11/14/24 09:37 Pulse Ox 95 11/14/24 09:37 Oxygen Delivery Method Room Air 11/14/24 09:37 Care Plan Goal for BP management: <140/90 at Goal BMI result Body Mass Index 25.2 BMI Assessment/Plan discussion: High BMI High, discussed plan: lifestyle, weight reduction, dietary, physical activity and alcohol moderation Tobacco/Smoking Status: Tobacco use Status Tobacco use date assessed 11/14/24 11/14/24 09:36 Patient Tobacco Use Status Current everyday Tobacco 11/14/24 09:54 Tobacco use type Cigarette 11/14/24 09:54 PHQ-9: PHQ-9 Score PHQ-9: Total score 15 11/14/24 10:32 Depression Screening Interpretation: Positive Depression Screening Follow-up: Existing condition and In treatment Thrive Assessment: Date of Thrive Assessment Date Thrive assessed 11/14/24 11/14/24 09:36 Currently or been in a relationship where the following occur: No concerns reported Const Other: Appearance: Alert. Oriented X3. No acute distress. Head: Normal external exam. Normocephalic. Atraumatic. Eyes: Pupils are equal, round, and reactive to light. Extraocular movements intact. Conjunctiva and sclera normal. Eyelids normal. Ears: External auditory canal normal. Tympanic membranes normal. No wax noted. Throat: Pharynx normal. Uvula midline. Moist mucous membranes. Neck: Normal inspection. Neck supple. Full range of motion. Cardiovascular: Normal heart rate and rhythm. Heart sound normal. No murmurs noted. Pulses normal throughout. Respiratory: No respiratory distress. Painless inspiration. Breath sounds normal. No wheezes/rales/rhonchi noted. Chest nontender. No accessory muscle us age noted or decreased air movement noted. Abdomen: Soft and nontender. No distention noted. No organomegaly noted. Back: Full range of motion noted. Skin: Skin warm and dry. Normal skin color. Normal skin turgor. No rashes/lesions/lacerations noted. Extremities: No lower extremity edema. Extremities exhibit normal range of motion. Soft tissue swelling noted to bilateral hands consistent with arthritis. Neuro: Oriented X 3. No motor deficit. No sensory deficit. Reflexes normal. Mild tremors to bilateral hands. No focal deficits. Normal steady gait. Results AMB Hemoglobin A1c AMB Hemoglobin A1c 6.2 % Last Edit by LARISA Wells on 11/14/24 10:32 Results Reviewed Results Reviewed: Laboratory Last Values Hgb A1c (Clinic) 6.2 % (4.0-6.0) H 11/14/24 10:30 Coding Level of Care Code New Pt Level 4 (19679) Complex EM visit Add On G2211 Diagnoses History of pancreatic cancer Z85.07 Prostate cancer C61 Rheumatoid arthritis M06.9 Anxiety F41.9 History of pulmonary embolism Z86.711 Anticoagulated on Eliquis Z79.01 Tinnitus H93.19 Cough R05.9 Dizziness of unknown cause R42 Essential tremor G25.0 Additional Codes PHQ-9 - 40123 - PHQ-9 Billing: Yes ([id number]) EZYAD-7 Assessment Billing - ZEYAD-7 Assessment Tool: ZEYAD-7 Assessment 69621 ([id number]) Time Spent (min) 50 Assessment & Plan Assessment & Plan (1) History of pancreatic cancer: Code(s): Z85.07 - Personal history of malignant neoplasm of pancreas Category: Medical Plan: The patient is advised to continue with annual chest x-rays as previously recommended by his oncologist, despite differing opinions from Dr. Blum. Will obtain CT scan of chest and abdomen pelvis. Will continue to monitor. (2) Prostate cancer: Code(s): C61 - Malignant neoplasm of prostate Category: Medical Plan: The patient is currently under the care of Dr. Nunn and is on medication for prostate cancer. Continued follow-up with Dr. Nunn is recommended. (3) Rheumatoid arthritis: Code(s): M06.9 - Rheumatoid arthritis, unspecified Category: Medical Plan: The patient is on pain medication for rheumatoid arthritis, although there is uncertainty about its specific use for this condition. Further evaluation of pain management strategies may be necessary. We decided to wean the patient down from hydrocodone acetaminophen 5-325 from 3 tablets daily to 1 tablet daily. Patient understands agrees with this plan. May consider continuing weaning down. (4) Anxiety: Code(s): F41.9 - Anxiety disorder, unspecified Category: Medical Plan: The patient is currently on fluoxetine for anxiety and depression. Referral to a therapist or psychiatrist was discussed but declined by the patient. Patient denies any SI or HI or any auditory or visual hallucinations or thoughts of self-injury. Will continue to monitor and reassess. (5) History of pulmonary embolism: Code(s): Z86.711 - Personal history of pulmonary embolism Category: Medical Plan: The patient is on Eliquis for the management of pulmonary embolism, which was attributed to his cancer. Continued use of Eliquis is advised. (6) Anticoagulated on Eliquis: Code(s): Z79.01 - laborer marine terminal (current) use of anticoagulants Category: Medical Plan: Patient to continue Eliquis for history of pulmonary embolism. (7) Tinnitus: Code(s): H93.19 - Tinnitus, unspecified ear Category: Medical Plan: The patient reports tinnitus and has tried uzpa-uyf-zqalsby remedies without success. Further evaluation by an ENT specialist was suggested but not pursued. (8) Cough: Code(s): R05.9 - Cough, unspecified Category: Medical Plan: The patient is experiencing a dry cough and congestion following a sore throat and fever. A course of antibiotics, specifically a Z-Ole, was discussed to address these symptoms. (9) Dizziness of unknown cause: Code(s): R42 - Dizziness and giddiness Category: Medical Plan: Patient reports intermittent dizziness, imbalance/gait disturbance and tremors to bilateral hands will obtain CT scan of brain and carotid ultrasound. Patient has a normal neuro exam today. Explained to the patient if he develops any dizziness again that is persistent, new, new symptoms, confusion, weakness, paresthesias then he will need to go to the emergency department immediately. Patient with at bedside understand agree this plan. Will continue to monitor. (10) Essential tremor: Code(s): G25.0 - Essential tremor Category: Medical Plan: Patient reports intermittent dizziness, imbalance/gait disturbance and tremors to bilateral hands will obtain CT scan of brain and carotid ultrasound. Patient has a normal neuro exam today. Explained to the patient if he develops any dizziness again that is persistent, new, new symptoms, confusion, weakness, paresthesias then he will need to go to the emergency department immediately. Patient with at bedside understand agree this plan. Will continue to monitor. Plan Plan Patient was informed and verbally consented to the use of an ambient scribe for clinic note documentation during this visit. 1. Pancreatic Cancer The patient is advised to continue with annual chest x-rays as previously recommended by his oncologist, despite differing opinions from Dr. Blum. A follow-up with a regular physician is suggested for ongoing monitoring. 2. Prostate Cancer The patient is currently under the care of Dr. Nunn and is on medication for prostate cancer. Continued follow-up with Dr. Nunn is recommended. 3. Rheumatoid Arthritis The patient is on pain medication for rheumatoid arthritis, although there is uncertainty about its specific use for this condition. Further evaluation of pain management strategies may be necessary. 4. Anxiety The patient is currently on fluoxetine for anxiety and depression. Referral to a therapist or psychiatrist was discussed but declined by the patient. 5. Pulmonary Embolism The patient is on Eliquis for the management of pulmonary embolism, which was attributed to his cancer. Continued use of Eliquis is advised. 6. Tinnitus The patient reports tinnitus and has tried innw-nlg-eigpzyi remedies without success. Further evaluation by an ENT specialist was suggested but not pursued. 7. Dry Cough And Congestion The patient is experiencing a dry cough and congestion following a sore throat and fever. A course of antibiotics, specifically a Z-Ole, was discussed to address these symptoms. During the visit, we discussed the management of the patient's multiple chronic conditions, including the continuation of current medications and the potential need for further evaluation of symptoms such as tinnitus and hearing loss. We also addressed the patient's recent respiratory symptoms and agreed on a trial of antibiotics. The patient was informed about the importance of regular follow- ups and monitoring, especially concerning his cancer history and the use of narcotics. We discussed the potential risks and benefits of the proposed management plans, and the patient expressed understanding and agreement with the outlined approach. Orders: Orders AMB Hemoglobin A1c Today Z13.9 - Encounter for screening, unspecified CT head/brain wo IV con Today G11.9 - Hereditary ataxia, unspecified, G20.C - Parkinsonism, unspecified, G25.0 - Essential tremor CT chest wo IV con Today C61 - Malignant neoplasm of prostate, R05.9 - Cough, unspecified, Z85.07 - Personal history of malignant neoplasm of pancreas CT abdomen pelvis w IV con Today C61 - Malignant neoplasm of prostate, R05.9 - Cough, unspecified, Z85.07 - Personal history of malignant neoplasm of pancreas US carotid duplex BI Today H81.13 - Benign paroxysmal vertigo, bilateral Complete Blood Count Auto Diff Today Z00.00 - Encounter for general adult medical examination without abnormal findings Comprehensive Met. Panel Today Z.00 - Encounter for general adult medical examination without abnormal findings Magnesium Today Z.00 - Encounter for general adult medical examination without abnormal findings TSH reflex Free T4 Today Z.00 - Encounter for general adult medical examination without abnormal findings Vitamin B12 and Folate Today Z.00 - Encounter for general adult medical examination without abnormal findings C Reactive Protein Today Z.00 - Encounter for general adult medical examination without abnormal findings Liver Panel Today Z00.00 - Encounter for general adult medical examination without abnormal findings Vitamin D 25-OH Total Today Z00.00 - Encounter for general adult medical examination without abnormal findings Medications: New blood sugar diagnostic (FreeStyle Lite Strips) Check glucose daily 100 ea 1RF alcohol swabs (Alcohol Pads) 1 pad topical DAILY 100 ea 1RF lancets (FreeStyle Lancets) Check glucose daily 100 ea 1RF azithromycin For 250 mg dose pack: take 500 mg today (day 1), then 250 mg for 4 days (days 2-5) PO 6 tabs 0RF zolpidem 10 mg PO BEDTIME 30 tabs 0RF blood-glucose meter (FreeStyle Lite Meter kit) Check glucose daily 1 ea 1RF E11.9 - Type 2 diabetes mellitus without complications Changed From hydrocodone-acetaminophen 5-325 mg 1 tab PO BID PRN 0RF Pain To hydrocodone-acetaminophen 5-325 mg 1 tab PO DAILY PRN 30 tabs 0RF Pain Patient Instructions: - Continue taking all prescribed medications as directed. - Follow up with Dr. Nunn for prostate cancer management. - Schedule annual chest x-rays as recommended by your oncologist. - Monitor for any new or worsening symptoms and report them to your healthcare provider. - Consider further evaluation for tinnitus and hearing loss if symptoms persist. - Return for monthly follow-ups as scheduled.
[2024-11-14 09:37] VITALS: BP 140/70; PULSE 73; RESP 20; TEMP 36.9; O2SAT 95; BMI 25.2
--- OUTSIDE RECORDS SUMMARY | 2024-11-14 09:58 | XMS_ITS | Patient Health Record ---
Author Organization [facility] Address [address] [place] [address] Care Team Providers Care Comber Operator Name Role Phone Kulwant (RETIRED) Lawrence CASTANEDA Primary Care Provider Unavailable Valeriano Martin Unavailable [phone] Allergies Allergen (clinical drug ingredient) Drug/Non Drug Allergy documented on EMR Reaction Allergy Type Onset Date Status Penicillin Unknown Drug Allergy Active Reason For Referral No Information Medications Medication SIG (Take, Route, Frequency, Duration) Notes Start Date End Date Status Simvastatin Active Metoprolol Succinate Active Colyte w Flavor Packs 240 GM as directed Orally as directed for 1 day(s) 05/18/2015 Active Lisinopril Active Prozac Active Problems Problem Type SNOMED Code ICD Code Onset Dates Problem Status W/U Status Risk Notes Problem [id number] Encounter for screening for malignant neoplasm of colon (Z12.11) Active confirmed Problem Screening for malignant neoplasm of rectum ([id number]) Encounter for screening for malignant neoplasm of rectum (Z12.12) Active confirmed Problem [id number] Chronic hepatitis C without hepatic coma (B18.2) Active confirmed Plan Of Treatment Pending Test Test Name Order Date GI BIOPSY 07/31/2015 LIVER PROFILE 05/15/2015 ALPHA-FETOPROTEIN,TUMOR MARKER 6 HEPATITIS C VIRAL LOAD 05/15/2015 US ABD 05/15/2015 Future Test Test Name Order Date COLONOSCOPY 05/15/2015 Insurance Providers Payer Name Payer Address Payer Phone Subscriber Number Group Number Insured Name Patient Relationship to Insured Coverage Start Date Coverage End Date [employer] [address] [place] [phone] [id number] CHRISTIANE MEJIA Self - patient is the insured Medical (General) History Medical History History ICD Code Chronic hepatits C--s/p 20 w eeks of Rx in 2005 with pegylated interferon and ribavirin for hepatitis C genotype 3--- his liver biopsy in 2004 revealed a I/IV fibrosis and grade 2/4 inflammation Depression Denies ,DM,CVA,Lung disease,renal diseas e [place] in 2007--had 1 cardiac stent placed-f ine since HTN Surgical History Surgery Date(Month/Year) appendectomy hernia surgery
== END 2024-11-14 10:37 | disposition home or self-care (01) ==
LOC: HO.HMCSH 09:28
PROVIDERS: PCP Internal Medicine; Visit Provider Physician Assistant Medical
DX: Z85.07 Personal history of malignant neoplasm of pancreas (principal); C61 Malignant neoplasm of prostate; M06.9 Rheumatoid arthritis, unspecified; F41.9 Anxiety disorder, unspecified; Z86.711 Personal history of pulmonary embolism; Z79.01 Long term (current) use of anticoagulants; H93.19 Tinnitus, unspecified ear; R05.9 Cough, unspecified; R42 Dizziness and giddiness; G25.0 Essential tremor; Z13.9 Encounter for screening, unspecified

== ENCOUNTER → 2024-11-14 09:28 | Outpatient (BNVA) | payer MEDICARE, MEDICAID, SELFPAY | PROVIDERS: PCP Internal Medicine; Visit Provider Physician Assistant Medical | DX: Z13.1 Encounter for screening for diabetes mellitus (principal); C61 Malignant neoplasm of prostate; M06.9 Rheumatoid arthritis, unspecified; F41.9 Anxiety disorder, unspecified; R05.9 Cough, unspecified; R42 Dizziness and giddiness; G25.0 Essential tremor; Z79.01 Long term (current) use of anticoagulants; Z86.711 Personal history of pulmonary embolism | CPT/HCPCS: 83036; 96127; 99202 ==

== ENCOUNTER 2024-11-27 10:16 | Outpatient (REF) | payer MEDICARE, MEDICAID, SELFPAY ==
--- NOTE | ~2024-11-27 | US_ITS ---
CLINICAL HISTORY: H81.13 - Benign paroxysmal vertigo, bilateral US Bilateral Carotid Duplex Comparison: None provided Findings: No significant plaque within the common carotid arteries. No significant plaque within the carotid bulbs. Normal color doppler and waveforms morphology. Peak systolic velocities: Right CCA: 98 cm/s. Right ICA: 116 cm/s. ICA/CCA ratio: 1.0. Right ECA: Unremarkable. Right vertebral artery flow antegrade. Left CCA: 121 cm/s. Left ICA: 100 cm/s. ICA/CCA ratio: 0.7. Left ECA: Unremarkable. Left vertebral artery flow antegrade. IMPRESSION: Normal carotid velocities, no significant stenosis (0-49% stenosis). This document has been electronically signed by: Levon Plummer MD on 11/27/2024 13:01:23
--- OUTSIDE RECORDS SUMMARY | 2024-11-27 11:19 | XMS_ITS | Patient Health Record ---
Author Organization [facility] Address [address] [place] [address] Care Team Providers Care Chute Man Name Role Phone Kulwant (RETIRED) Lawrence CASTANEDA Primary Care Provider Unavailable Valeriano Martin Unavailable [phone] Allergies Allergen (clinical drug ingredient) Drug/Non Drug [...] Problem Status W/U Status Risk Notes Problem [id number] Encounter for screening for malignant neoplasm of colon (Z12.11) Active confirmed Problem Screening for malignant neoplasm of rectum (763157529) Encounter for screening for malignant neoplasm of rectum (Z12.12) Active confirmed Problem 898197838 Chronic hepatitis C without hepatic coma (B18.2) [...] Insured Coverage Start Date Coverage End Date [employer] [address] [place] [phone] [id number] CHRISTIANE MEJIA Self - patient is the insured Medical (General) History Medical History History ICD Code Chronic hepatits C--s/p 20 w eeks of Rx in 2005 with pegylated interferon and ribavirin for hepatitis C genotype 3--- his liver biopsy in 2004 revealed a I/IV fibrosis and grade 2/4 inflammation Depression Denies ,DM,CVA,Lung disease,renal diseas e [place] in 2007--had 1 cardiac stent placed-f ine since HTN Surgical History Surgery Date(Month/Year) appendectomy hernia surgery
== END 2024-11-27 10:17 | disposition home or self-care (01) ==
LOC: HO.US 10:16
PROVIDERS: PCP Physician Assistant Medical; Visit Provider Physician Assistant Medical
DX: Z13.6 Encounter for screening for cardiovascular disorders (principal); H81.13 Benign paroxysmal vertigo, bilateral; I65.23 Occlusion and stenosis of bilateral carotid arteries
CPT/HCPCS: 93880

== ENCOUNTER → 2024-11-27 10:19 | Outpatient (BNV) | payer MEDICARE, MEDICAID, SELFPAY | PROVIDERS: PCP Physician Assistant Medical; Visit Provider Radiology Vascular & Interventional Radiology | DX: R42 Dizziness and giddiness (principal) | CPT/HCPCS: 93880 ==

== ENCOUNTER 2024-11-30 06:44 | Outpatient (REF) | payer MEDICARE, MEDICAID, SELFPAY ==
--- NOTE | ~2024-11-30 | CT_ITS ---
EXAMINATION: CT HEAD WITHOUT CONTRAST CLINICAL INFORMATION: G25.0 - Essential tremor COMPARISON: None available. TECHNIQUE: Contiguous axial imaging was performed from the skull base to vertex without intravenous administration of contrast. This CT examination was performed using dose optimization techniques as appropriate, variously including the following: *Automated exposure control *Adjustment of mA and/or kV according to patient size (this includes techniques or standardized protocols for targeted exams where dose is matched to indication/reason for exam; i.e. extremities or head) *Use of iterative reconstruction technique DLP: 795.4 mGy-cm FINDINGS: No acute intracranial hemorrhage, mass effect, midline shift, hydrocephalus or herniation. Brothers-white matter differentiation is normal. Sellar/suprasellar region demonstrated no gross masses. Posterior cranial fossa contents demonstrated no gross mass effect or hemorrhage. Normal position of the cerebellar tonsils. Calcified plaques in the cavernous supracavernous segments both ICAs. The bony calvarium is intact. No air-fluid levels in the paranasal sinuses. Tympanic cavities and mastoid air cells are aerated. No gross masses in the intraconal or extraconal compartments of the orbits. CT/CT head/brain wo IV con IMPRESSION: No acute or structural brain abnormality by CT. Atherosclerosis disease, intracranial. Electronically signed by: Cameron Henriquez MD 11/30/2024 09:59 AM EDT
--- NOTE | ~2024-11-30 | CT_ITS ---
EXAMINATION: CT CHEST WITHOUT CONTRAST CLINICAL INFORMATION: Tremors. Cough. R 05.9 COMPARISON: None available. TECHNIQUE: Multidetector volumetric CT imaging of the chest was done. Axial MIP volume rendering provided. Sagittal and coronal reformatted images were obtained. This CT examination was performed using dose optimization techniques as appropriate, variously including the following: *Automated exposure control *Adjustment of mA and/or kV according to patient size (this includes techniques or standardized protocols for targeted exams where dose is matched to indication/reason for exam; i.e. extremities or head) *Use of iterative reconstruction technique DLP: 273.2 mGy centimeter. FINDINGS: TECHNICAL SERVICE REP: Hyperinflated lungs. Patient's large body habitus. Both upper extremities at the side of the body. Multilevel thoracolumbar spondylosis with a shaped curvature. LUNGS: Paraseptal emphysematous changes involving mostly the upper lung lobes. Linear attenuation abnormalities bilaterally. Bilateral apical lung scarring. No gross consolidation. No gross secretions within the airway. MEDIASTINUM: No gross lymphadenopathy. No pericardial effusion. No hemopericardium. No pneumomediastinum. Calcified plaques in the thoracic aorta and coronary arteries. No aneurysm, thoracic aorta. The thyroid gland is not enlarged. There is a right-sided Port-A-Cath tip ending at the right atrium. CORONARY ARTERY CALCIFICATION: Calcified plaques. Probably stenting at the LAD. PLEURA: No calcified pleural plaques. No pneumothorax. No hemothorax. No pleural effusion. AXILLA: No lymphadenopathy. UPPER ABDOMEN: Small hiatal hernia. There is contrast within the large intestine and stomach and small bowel loops. Sutures at the stomach and likely small bowel loops. Status post cholecystectomy. Multiple vascular clips in the head/uncinate process of the pancreas region. Pneumobilia. OSSEOUS STRUCTURES: Multilevel cervical thoracic spondylosis without acute fracture or listhesis. No lytic or blastic lesions. Osteopenia. CT/CT chest wo IV con IMPRESSION: Paraseptal emphysematous changes. Bilateral apical lung scarring. No gross acute airspace disease. No discrete pulmonary nodules. Atherosclerosis disease and coronary artery disease. Fleischner guidelines were followed. Electronically signed by: Cameron Henriquez MD 11/30/2024 11:15 AM EDT
--- OUTSIDE RECORDS SUMMARY | 2024-11-30 06:47 | XMS_ITS | Patient Health Record ---
Author Organization [facility] Address [address] [place] [address] Care Team Providers Care Art Preparator Name Role Phone Kulwant (RETIRED) Lawrence CASTANEDA Primary Care Provider Unavailable Valeriano Martin Unavailable [phone] Allergies Allergen (clinical drug ingredient) Drug/Non Drug [...] Problem Status W/U Status Risk Notes Problem [id number] Encounter for screening for malignant neoplasm of colon (Z12.11) Active confirmed Problem Screening for malignant neoplasm of rectum ([id number]) Encounter for screening for malignant neoplasm of rectum (Z12.12) Active confirmed Problem [id number] Chronic hepatitis C without hepatic coma (B18.2) [...] Insured Coverage Start Date Coverage End Date [employer] [address] [place] [phone] [id number] CHRISTIANE MEJIA Self - patient is the insured Medical (General) History Medical History History ICD Code Chronic hepatits C--s/p 20 w eeks of Rx in 2005 with pegylated interferon and ribavirin for hepatitis C genotype 3--- his liver biopsy in 2004 revealed a I/IV fibrosis and grade 2/4 inflammation Depression Denies ,DM,CVA,Lung disease,renal diseas e [place] in 2007--had 1 cardiac stent placed-f ine since HTN Surgical History Surgery Date(Month/Year) appendectomy hernia surgery
[2024-11-30 07:02] LABS: MANUAL DIFF FLAG NO
[2024-11-30 07:40] LABS: Hematocrit 40.6 % (42.0-52.0); Hemoglobin 14.3 g/dl (14.0-18.0); Imm Gran Abs Auto 0.02 X10*3/uL (0.00-0.03); Imm Gran Pct Auto 0.3 % (0.0-0.4); Lymphocytes Absolute Auto 2.0 X10*3/uL (1.2-4.9); Mean Corpuscular HGB Conc 35.2 g/dl (31.0-36.0); Mean Corpuscular Hemoglobin 29.7 pg (27.0-33.0); Mean Corpuscular Volume 84.2 fL (80.0-98.0); NRBC Abs Auto 0.000 X10*3/uL (0.0-0.012); NRBC Pct Auto 0.0 /100WBC (0.0-0.2); Platelet Count 210 X10*3/uL (160-400); Red Blood Count 4.82 X10*6/uL (4.60-5.80); White Blood Count 6.8 X10*3/uL (4.8-10.8)
[2024-11-30 08:22] LABS: Alanine Aminotransferase 28 U/L (0-40); Anion Gap 12 (12-20); Aspartate Amino Transferase 38 U/L (5-37); Blood Urea Nitrogen 13 mg/dL (9-16); Calcium 8.8 mg/dL (8.4-10.2); Carbon Dioxide 25 mmol/L (22-29); Chloride 105 mmol/L (96-108); Estimated Glomerular Filt Rate > 60; Magnesium 2.0 mg/dL (1.6-2.6); Potassium 3.5 mmol/L (3.3-5.1); Sodium 138 mmol/L (135-145)
[2024-11-30 08:23] LABS: Albumin Level 4.4 g/dL (3.5-5.0); Alkaline Phosphatase 58 U/L (39-117); Total Protein 7.0 g/dL (6.5-8.0)
[2024-11-30 08:41] LABS: Folate 12.8 ng/mL (> or = 4.0); Vitamin B12 250 pg/mL (200-900)
[2024-11-30] MEDS: iohexoL 350 MG/ML 100 ML INFUS..BTL 85 ML IV (09:46)
[2024-11-30] MEDS: Barium Sulfate Oral (Berry) 450 ML ORAL.SUSP 900 ML PO (09:53)
== END 2024-11-30 06:45 | disposition home or self-care (01) ==
LOC: HO.CT 06:44
PROVIDERS: PCP Physician Assistant Medical; Visit Provider Physician Assistant Medical
DX: C61 Malignant neoplasm of prostate (principal); R05.9 Cough, unspecified; G11.9 Hereditary ataxia, unspecified; G20.C Parkinsonism, unspecified; G25.0 Essential tremor; Z85.07 Personal history of malignant neoplasm of pancreas; Z00.00 Encounter for general adult medical examination without abnormal findings
CPT/HCPCS: 36415; 70450; 71250; 74177; 80053; 82248; 82306; 82607; 82746; 83735; 84443; 85025; 86140; Q9967

== ENCOUNTER → 2024-11-30 07:04 | Outpatient (BNV) | payer MEDICARE, MEDICAID, SELFPAY | PROVIDERS: PCP Physician Assistant Medical; Visit Provider Radiology Diagnostic Radiology | DX: K57.30 Diverticulosis of large intestine without perforation or abscess without bleeding (principal); K44.9 Diaphragmatic hernia without obstruction or gangrene; Z85.07 Personal history of malignant neoplasm of pancreas | CPT/HCPCS: 74177 ==

== ENCOUNTER 2024-12-13 13:44 | Outpatient (AMB) | payer MEDICARE, MEDICAID, SELFPAY ==
--- OUTSIDE RECORDS SUMMARY | 2024-12-13 14:27 | XMS_ITS | Patient Health Record ---
Author Organization [facility] Address [address] [place] [address] Care Team Providers Care Soap Mixer Name Role Phone LISA RAMÍREZ PA-C Primary Care Provider Valeriano Newberry Unavailable [phone] Allergies Allergen (clinical drug ingredient) Drug/Non Drug [...] Problem Status W/U Status Risk Notes Problem [id number] Encounter for screening for malignant neoplasm of colon (Z12.11) Active confirmed Problem Screening for malignant neoplasm of rectum ([id number]) Encounter for screening for malignant neoplasm of rectum (Z12.12) Active confirmed Problem [id number] Chronic hepatitis C without hepatic coma (B18.2) [...] Insured Coverage Start Date Coverage End Date [place] OF [place] [address] [place] [id number] CHRISTIANE MEJIA Self - patient is the insured MEDICAID OF [employer] [address] [place] [phone] [id number] CHRISTIANE MEJIA Self - patient is the insured Medical (General) History Medical History History ICD Code Chronic hepatits C--s/p 20 w eeks of Rx in 2005 with pegylated interferon and ribavirin for hepatitis C genotype 3--- his liver biopsy in 2004 revealed a I/IV fibrosis and grade 2/4 inflammation Depression Denies ,DM,CVA,Lung disease,renal diseas e [place] in 2007--had 1 cardiac stent placed-f ine since HTN Surgical History Surgery Date(Month/Year) appendectomy hernia surgery
[2024-12-13 14:34] VITALS: BP 130/64; PULSE 78; TEMP 36.3; O2SAT 96; BMI 25.1
--- NOTE | 2024-12-13 14:34 | AM.OFFWIN_ITS ---
Intake Vital Signs 12/13/24 14:34 Height 5 ft 11 in Weight 180 lb BMI 25.1 BP 130/64 Blood Pressure Location Rt brachial Position Sitting Pulse 78 Pulse Source Pulse Oximeter Temp 97.4 F Temp Source Oral Pulse Oximetry (%) 96 Oxygen Delivery Method Room Air Intake Visit Reasons: stitches for left elbow Intake Note: pt presents with open wound LT elbow; slammed elbow into glass window as he was falling over. States he had ambulance check him out and he was bandaged and informed stitches are needed Patient Tobacco Use Status: Current everyday Tobacco user Allergies Penicillins Allergy (Mild, Verified 12/13/24 14:40) Rash Do you need a note to return to daycare/school/sports/work: No HPI HPI Comments History of Present Illness Details History of Present Illness - The patient is a 69-year-old male pres enting with a laceration on the elbow. - The injury occurred while grooming a d og, resulting in a fall and the left elbow going through a window. - He had a piece of glass in the elbow t hat he was able to pull out. - The patient was unable to stop the ble eding due to being on anticoagulation therapy. - An ambulance was called, and medical a ttention was sought for the laceration. - He was told that he needed the lacerat ion repaired. - The patient has a history of balance p roblems, which may have contributed to the fall. - He denies syncope, numbness, tingling, weakness, arm pain. Physical Exam General: Cooperative, healthy appearing, comfortable, no acute distress and well developed Orientation: Patient oriented x3 Respiratory: Normal respiratory effort and able to speak in complete sentences. Clear to auscultation bilaterally Cardiovascular: Regular rate and rhythm. Normal S1 and S2 Skin: Laceration noted on the posterior left elbow. No tendon involvement. No FB noted. Small avulsion noted on the elbow. Bleeding active. Neuro: Patient oriented x3. Sensation is intact. Extremities: Injury to elbow with glass removed prior. FROM of the left elbow, wrist and digits. Hand transit operations supervisor is intact. Patient was informed and verbally consented to the use of an ambient scribe for clinic note documentation during this visit. [facility] Medical History (Updated 12/06/24 @ 16:50 by Angelica Pena PA-C) Diverticulosis Hiatal hernia Lesion of liver Aortic atherosclerosis Osteopenia Emphysema lung COPD (chronic obstructive pulmonary disease) Vitamin D deficiency Encounter for screening for cardiovascular disorders Type 2 diabetes mellitus with hemoglobin A1c goal of less than 7.0% Ischemic cardiomyopathy Coronary artery disease Tinnitus Anticoagulated on Eliquis History of pulmonary embolism Rheumatoid arthritis Benign paroxysmal vertigo, bilateral Acute cerebellar ataxia Essential tremor History of pancreatic cancer Cough Dizziness of unknown cause Gait disturbance Chronic abdominal pain Anxiety Elevated cholesterol GERD (gastroesophageal reflux disease) Hx of hepatitis C Prostate cancer Prediabetes Pancreatic cancer Surgical History (Updated 12/03/24 @ 15:54 by Angelica Pena PA-C) History of cholecystectomy History of Whipple procedure Hx of right inguinal hernia repair Hx of colonoscopy (~2015) Hx of appendectomy Family History Father Lung cancer Mother High blood pressure Social History Housing: Apartment Alcohol intake: current Alcohol intake frequency: does not drink Patient Tobacco Use Status: Current everyday Tobacco user Tobacco use type: Cigarette Cigarettes Per Day: 10 service: No Current occupational status: retired Cognitive needs: Yes (cane) Hearing needs: No Vision needs: Yes (readidng glasses) Review of Systems Const All systems reviewed & are unremarkable except as noted in HPI and below Physical Exam Vital Signs: Last Vital Signs Temp 97.4 F 12/13/24 14:34 Pulse 78 12/13/24 14:34 BP 130/64 12/13/24 14:34 Pulse Ox 96 12/13/24 14:34 Oxygen Delivery Method Room Air 12/13/24 14:34 BMI result Body Mass Index 25.1 Office Procedures AMB Laceration Repair Location: left posterior elbow Length: 5 cm Sedation: No Anesthesia: 1% lidocaine Irrigation: saline Preparation: betadine Wound exploration: none (No glass noted) Deep closure: No Skin closure: nylon Technique: Closed the wound with 4-0 ethilon sutures #6. Surgicel to small avulsion Topical treatment: triple antibiotic Tetanus toxoid ordered: No Patient tolerated [place]: [place] [id number] Repair 2.6-7.5cm Procedure code (CPT) selection complete Office Meds lidocaine (PF) 10 mg/mL (1 %) injection solution Performing Provider: Megha Alarcon PA-C Performing Location: [facility] Administered by: Megha Alarcon PA-C on 12/13/24 16:14 Dose Route Admin Location Dispensed Lot Number Expiration Date [facility] Farm Management Teacher 2 mL Infiltration 2 mL [id number] 04/17/26 80304-160-67 [employer] Total Dispensed Waste 2 mL 0 % Results Reviewed Results Reviewed: Reviewed the xray and negative Assessment & Plan Assessment & Plan (1) Elbow laceration: Code(s): S51.019A - Laceration without foreign body of unspecified elbow, initial encounter Qualifiers: Encounter type: initial encounter Laterality: left Qualified Code(s): S51.012A - Laceration without foreign body of left elbow, initial encounter Plan Most likely laceration to the elbow x-ray done in the office to r/o FB laceration repair in the office plan - keep wound clean and dry - bacitracin to the wound for 2 days - apply dry sterile dressing to the wound - tylenol as needed for the pain - have the sutures removed in 10-14 days - advised to watch for signs of infection - follow up with PCP Orders: Orders XR elbow LT min 3V Today S51.019A - Laceration without foreign body of unspecified elbow, initial encounter AMB Laceration Repair Today S51.019A - Laceration without foreign body of unspecified elbow, initial encounter Medications: New zcgwit-usvbrbpu-xylmzic 15,000-47,000 -63,000 unit (Zenpep) 1 cap PO TID 90 caps 0RF Refilled zolpidem 10 mg PO BEDTIME 30 tabs 0RF Coding Level of Care Code Est Pt Level 4 (83306) Diagnoses Laceration of left elbow, initial encounter S51.012A Encounter type: initial encounter Laterality: left CPT Codes Office Procedure - Laceration Repair 2: [id number] Repair 2.6-7.5cm ([id number])
== END 2024-12-13 16:13 | disposition home or self-care (01) ==
PROVIDERS: PCP Physician Assistant Medical; Visit Provider Physician Assistant Medical
DX: S51.012A Laceration without foreign body of left elbow, initial encounter (principal)

== ENCOUNTER 2024-12-13 13:44 | Outpatient (REF) | payer MEDICARE, MEDICAID, SELFPAY ==
--- NOTE | ~2024-12-13 | XR_ITS ---
EXAMINATION: XR ELBOW, LEFT CLINICAL INFORMATION: S51.019A - Laceration without foreign body of unspecified elbow, initial... COMPARISON: None available. TECHNIQUE: AP, lateral, and oblique views of the left elbow. FINDINGS: No acute cortical disruption or malalignment. No lytic or blastic lesions. No gross joint effusion. No subcutaneous emphysema. No metallic or radiopaque foreign body. XR/XR elbow LT min 3V IMPRESSION: No acute fracture or dislocation. No gross foreign body. Electronically signed by: Cameron Henriquez MD 12/13/2024 03:56 PM EDT
== END 2024-12-13 13:45 | disposition home or self-care (01) ==
LOC: HO.HMGCX 13:44
PROVIDERS: PCP Physician Assistant Medical; Visit Provider Physician Assistant Medical
DX: S51.012A Laceration without foreign body of left elbow, initial encounter (principal); W25.XXXA Contact with sharp glass, initial encounter
CPT/HCPCS: 12002; 73080; 99212; J2003

== ENCOUNTER → 2024-12-13 15:28 | Outpatient (BNV) | payer MEDICARE, MEDICAID, SELFPAY | PROVIDERS: PCP Physician Assistant Medical; Visit Provider Radiology Diagnostic Radiology | DX: S51.012A Laceration without foreign body of left elbow, initial encounter (principal) | CPT/HCPCS: 73080 ==

== ENCOUNTER 2024-12-26 08:40 | Outpatient (AMB) | payer MEDICARE, MEDICAID, SELFPAY ==
[2024-12-26 09:04] VITALS: BP 128/60; PULSE 85; TEMP 36.6; O2SAT 95; BMI 25.4
--- NOTE | 2024-12-26 09:04 | MHC.OFFWIV ---
Intake Vital Signs 12/26/24 09:04 Height 5 ft 11 in Weight 182 lb BMI 25.4 BP 128/60 Blood Pressure Location Rt brachial Position Sitting Pulse 85 Pulse Source Pulse Oximeter Temp 97.9 F Temp Source Oral Pulse Oximetry (%) 95 Oxygen Delivery Method Room Air Intake Visit Reasons: EP stitch removal Intake Note: pt presents for SR left elbow Patient Tobacco Use Status: Current everyday Tobacco user Allergies Penicillins Allergy (Mild, Verified 12/26/24 09:21) Rash HPI HPI Comments History of Present Illness Details History of Present Illness - The patient is a 69-year-old male presenting with a laceration of the arm, requring 6 sutures, now looking to have them removed. - The injury occurred 12 days ago due to a fall through glass, exacerbated by balance issues. - The patient was on blood thinners, leading to significant bleeding, necessitating emergency services. - Sutures were placed, and the patient is now here for their removal and wound evaluation. - No drainage, fevers or pain at the site. Physical Exam General: Cooperative, healthy appearing, comfortable, no acute distress and well developed Orientation: Patient oriented x3 Limitations: No limitations Head: Normal to inspection Ears: Hearing grossly normal bilaterally Nose: Normal External nose present Face and sinus: Normal facial exam Eyes: Appearance normal, both eyes and all related structures Neck: Normal visual inspection and Yes full ROM Respiratory: Normal respiratory effort and able to speak in complete sentences. Skin: No rashes or lesions noted Neuro: Patient oriented x3 Extremities: Normal to inspection, right elbow witha healing wound, 6 sutures removed, wound healed but open so I applied 3 SteriStrips and skin glue to approximate the edges. [facility] Medical History (Updated 12/26/24 @ 09:34 by Lesly Chang PA-C) Diverticulosis Hiatal hernia Lesion of liver Aortic atherosclerosis Osteopenia Emphysema lung COPD (chronic obstructive pulmonary disease) Vitamin D deficiency Encounter for screening for cardiovascular disorders Type 2 diabetes mellitus with hemoglobin A1c goal of less than 7.0% Ischemic cardiomyopathy Coronary artery disease Tinnitus Anticoagulated on Eliquis History of pulmonary embolism Rheumatoid arthritis Benign paroxysmal vertigo, bilateral Acute cerebellar ataxia Essential tremor History of pancreatic cancer Cough Dizziness of unknown cause Gait disturbance Chronic abdominal pain Anxiety Elevated cholesterol GERD (gastroesophageal reflux disease) Hx of hepatitis C Prostate cancer Prediabetes Pancreatic cancer Surgical History (Updated 12/03/24 @ 15:54 by Angelica Pena PA-C) History of cholecystectomy History of Whipple procedure Hx of right inguinal hernia repair Hx of colonoscopy (~2016) Hx of appendectomy Family History Father Lung cancer Mother High blood pressure Social History Housing: Apartment Alcohol intake: current Alcohol intake frequency: does not drink Patient Tobacco Use Status: Current everyday Tobacco user Tobacco use type: Cigarette Cigarettes Per Day: 10 service: No Current occupational status: retired Cognitive needs: Yes (cane) Hearing needs: No Vision needs: Yes (readidng glasses) Review of Systems Const All systems reviewed & are unremarkable except as noted in HPI and below Physical Exam Vital Signs: Last Vital Signs Temp 97.9 F 12/26/24 09:04 Pulse 85 12/26/24 09:04 BP 128/60 12/26/24 09:04 Pulse Ox 95 12/26/24 09:04 Oxygen Delivery Method Room Air 12/26/24 09:04 BMI result Body Mass Index 25.4 Office Procedures AMB Laceration Repair Details: removed 6 sutures, edges did not approximate so I applied 3 steri-strips and skin glue Laceration repair performed by: Lesly Chang Explained risks and benefits to parent: Yes Informed consent given: Yes Consent signed: No Length: 3cm Sedation: No Wound exploration: none Deep closure: No Skin closure: glue and other (3 steri-strips) Topical treatment: dry Tetanus toxoid ordered: No Patient tolerated procedure: well [place]: [place] [id number] Repair 2.6-7.5cm Procedure code (CPT) selection complete Office Meds lidocaine HCl 10 mg/mL (1 %) injection solution Performing Provider: Lesly Chang PA-C Performing Location: [facility] [place] [place] [facility] Documented (not given) by: Lesly Chang PA-C on 12/26/24 09:35 Reason Not Given: Not Medically Necessary lidocaine HCl 20 mg/mL (2 %) injection solution Performing Provider: Lesly Chang PA-C Performing Location: [facility] [place] [place] [facility] Documented (not given) by: Lesly Chang PA-C on 12/26/24 09:35 Reason Not Given: Not Medically Necessary Assessment & Plan Assessment & Plan (1) Laceration of elbow, left: Code(s): S51.012A - Laceration without foreign body of left elbow, initial encounter Qualifiers: Encounter type: subsequent encounter Qualified Code(s): S51.012D - Laceration without foreign body of left elbow, subsequent encounter Plan: Patient was informed and verbally consented to the use of an ambient scribe for clinic note documentation during this visit. Laceration of the left elbow - Sutures were removed, and Steri-Strips and glue were applied for additional support as wound healed but edges did not approximate. May not heal any further. - Patient advised to avoid trauma and keep the area clean and dry. - Monitor for infection and return for follow-up if needed. Orders: Orders AMB Laceration Repair Today S51.012D - Laceration without foreign body of left elbow, subsequent encounter Coding Level of Care Code Est Pt Level 3 (55361) Diagnoses Laceration of left elbow, subsequent encounter S51.012D Encounter type: subsequent encounter CPT Codes Office Procedure - Laceration Repair 2: [id number]-[id number] Repair 2.6-7.5cm ([id number])
--- OUTSIDE RECORDS SUMMARY | 2024-12-26 10:03 | XMS_ITS | Patient Health Record ---
Author Organization [facility] Address [address] [place] [address] Care Team Providers Care Sales Administration Specialist Name Role Phone LISA RAMÍREZ PA-C Primary Care Provider Valeriano Newberry Unavailable [phone] Allergies Allergen (clinical drug ingredient) Drug/Non Drug [...] Problem Status W/U Status Risk Notes Problem [id number] Encounter for screening for malignant neoplasm of colon (Z12.11) Active confirmed Problem Screening for malignant neoplasm of rectum (391755925) Encounter for screening for malignant neoplasm of rectum (Z12.12) Active confirmed Problem 088604601 Chronic hepatitis C without hepatic coma (B18.2) [...] Start Date Coverage End Date MEDICARE OF [place] [address] [place] [id number] CHRISTIANE MEJIA Self - patient is the insured MEDICAID OF [employer] [address] [place] [phone] [id number] CHRISTIANE MEJIA Self - patient is the insured Medical (General) History Medical History History ICD Code Chronic hepatits C--s/p 20 w eeks of Rx in 2005 with pegylated interferon and ribavirin for hepatitis C genotype 3--- his liver biopsy in 2004 revealed a I/IV fibrosis and grade 2/4 inflammation Depression Denies ,DM,CVA,Lung disease,renal diseas e [place] in 2007--had 1 cardiac stent placed-f ine since HTN Surgical History Surgery Date(Month/Year) appendectomy hernia surgery
== END 2024-12-26 09:58 | disposition home or self-care (01) ==
PROVIDERS: PCP Physician Assistant Medical; Visit Provider Physician Assistant
DX: S51.012D Laceration without foreign body of left elbow, subsequent encounter (principal)

== ENCOUNTER → 2024-12-26 08:40 | Outpatient (BNVA) | payer MEDICARE, MEDICAID, SELFPAY | PROVIDERS: PCP Physician Assistant Medical; Visit Provider Physician Assistant | DX: S51.021D Laceration with foreign body of right elbow, subsequent encounter (principal) | CPT/HCPCS: 12002; 99212 ==

== ENCOUNTER 2025-01-09 14:18 | Outpatient (AMB) | payer MEDICARE, MEDICAID, SELFPAY ==
[2025-01-09 14:36] VITALS: BP 135/69; PULSE 75; RESP 14; TEMP 36.8; O2SAT 96; BMI 25.8
--- NOTE | 2025-01-09 14:36 | MHC.PC.OV ---
Vital Signs 01/09/25 14:36 Height 5 ft 11.06 in Weight 185 lb BMI 25.8 BP 135/69 Blood Pressure Location Lt brachial Position Sitting Respiration 14 Pulse 75 Pulse Source Pulse Oximeter Temp 98.2 F Temp Source Temporal Artery Scan Pulse Oximetry (%) 96 Oxygen Delivery Method Room Air Intake Visit Reasons: 1 month follow up Magistrate Required: No Accompanied by: Self / Same As Patient Allergies Penicillins Allergy (Mild, Verified 01/09/25 15:31) Rash Medication List - Last Reconciled 01/09/25 by Angelica Pena PA-C alcohol swabs (Alcohol Pads) 1 pad topical DAILY apixaban (Eliquis) 5 mg PO BID 90 days atorvastatin 20 mg PO DAILY blood sugar diagnostic (FreeStyle Lite Strips) 1 strip miscellaneous DAILY blood-glucose meter (FreeStyle Lite Meter kit) Check glucose daily cholecalciferol (vitamin D3) 50 mcg PO DAILY finasteride 5 mg PO DAILY 90 days fluoxetine 40 mg PO QAM lancets (FreeStyle Lancets) 1 gauge miscellaneous DAILY webdav-[id number]-akqebdl 15,000-47,000 -63,000 unit (Zenpep) 1 cap PO TID pantoprazole 40 mg PO DAILY pioglitazone 30 mg PO DAILY zolpidem 10 mg PO BEDTIME Tobacco use date assessed: 11/14/24 Dental Screening Dental Screen Date: 11/14/24 HPI 1 month follow up HPI Details The patient is a 69-year-old male presenting with medication refills and management of chronic conditions. Patient is a patient of Dr. Blum he was currently on Sullivan 3 times a day although we reduced this to once daily. He is agreeable to pain contract that he signed today. He received Narcan today. He is agreeable to random drug screens. He is agreeable to random pill counts. He is agreeable to 30 day appointment. The patient has a history of atrial fibrillation for which he is on Eliquis, and he requested a refill during the visit. He also experiences insomnia and is prescribed Ambien, which he uses as needed. The patient has hyperlipidemia managed with atorvastatin and vitamin D deficiency for which he takes supplements. He also has benign prostatic hyperplasia, managed with finasteride, and generalized anxiety disorder treated with fluoxetine. The patient has a history of gastroesophageal reflux disease (GERD) managed with pantoprazole. He underwent a Whipple procedure for pancreatic cancer, which was successfully removed, and he takes ZenPep to aid digestion. The patient has diabetes mellitus, with a recent A1c of 6.3, and is managed with Actos. He also has a history of hepatitis, diverticulitis, and a hiatal hernia, for which he is not seeking further surgical intervention. Social History - The patient has a history of cutting a dog and losing balance, resulting in a fall. [facility] Medical History (Updated 01/09/25 @ 15:51 by Angelica Pena PA-C) Diverticulitis History of hepatitis Generalized anxiety disorder Hyperlipidemia Insomnia Atrial fibrillation Evaluation of hearing impairment Chronic pain Diverticulosis Hiatal hernia Lesion of liver Aortic atherosclerosis Osteopenia Emphysema lung COPD (chronic obstructive pulmonary disease) Vitamin D deficiency Encounter for screening for cardiovascular disorders Type 2 diabetes mellitus with hemoglobin A1c goal of less than 7.0% Ischemic cardiomyopathy Coronary artery disease Tinnitus Anticoagulated on Eliquis History of pulmonary embolism Rheumatoid arthritis Benign paroxysmal vertigo, bilateral Acute cerebellar ataxia Essential tremor History of pancreatic cancer Cough Dizziness of unknown cause Gait disturbance Chronic abdominal pain Anxiety Elevated cholesterol GERD (gastroesophageal reflux disease) Hx of hepatitis C Prostate cancer Prediabetes Pancreatic cancer Surgical History History of cholecystectomy History of Whipple procedure Hx of right inguinal hernia repair Hx of colonoscopy (~2015) Hx of appendectomy Family History Father Lung cancer Mother High blood pressure Social History Housing: Apartment Alcohol intake: current Alcohol intake frequency: does not drink Patient Tobacco Use Status: Current everyday Tobacco user Tobacco use type: Cigarette Cigarettes Per Day: 10 service: No Current occupational status: retired Cognitive needs: Yes (cane) Hearing needs: No Vision needs: Yes (readidng glasses) Questionnaire PHQ-9 Over the last 2 weeks, how often have you been bothered by any of the following problems? 1. Little interest or pleasure in doing things: nearly every day 2. Feeling down, depressed, or hopeless: more than half the days 3. Trouble falling or staying asleep, or sleeping too much: several days 4. Feeling tired or having little energy: nearly every day 5. Poor appetite or overeating: nearly every day 6. Feeling bad about yourself - or that you are a failure or have let yourself or your family down: not at all 7. Trouble concentrating on things, such as reading the newspaper or watching television: not at all 8. Moving or speaking so slowly that other people could have noticed. Or the opposite - being so fidgety or restless that you have been moving around a lot more than usual: nearly every day 9. Thoughts that you would be better off or of hurting yourself in some way: not at all Total score: 15 Depression Screening Interpretation: Positive Depression Screening Follow-up: Existing condition and In treatment Depression Screening Done: Yes 13220 - PHQ-9 Billing: Yes Source: Developed by Drs. Valeriano Campuzano, Smitha Mayfield, Ronald Caballero and colleagues, with an educational tyrone from [employer]. Thrive Questionnaire Date Thrive assessed: 11/14/24 I am a: Patient What is your living situation today?: I have a steady place to live Within the past 12 months, did the food you bought not last and you didn't have the money to get more?: Never true Within the past 12 months, did you worry whether your food would run out before you got money to buy more?: Never true Do you have trouble paying for medicines?: No Do you have trouble getting transportation to medical appointments?: No Do you have trouble paying your heating and electricity bill?: No Do you have trouble taking care of your child, family member or friend?: No Do you have trouble with day-to-day activities such as bathing, preparing meals, shopping, managing finances, etc.?: No Are you currently unemployed and looking for a job?: No Are you interested in more education?: No Please select the resources that you would like help with: None Currently or been in a relationship where the following occur: No concerns reported THRIVE Score: 0 AUDIT C Alcohol Use Questionnaire (AUDIT-C) 1. How often do you have a drink containing alcohol?: Never 3. How often do you have six or more drinks on one occasion?: Never Total Score: 0 Score Reviewed/Action Taken: No ZEYAD-7 AMB Questionnaire ZEYAD-7 Date ZEYAD - 7 assessed: 11/14/24 Feeling nervous, anxious, or on edge: 3 = Nearly every day Not being able to stop or control worryin = More than half the days Worrying too much about different things: 3 = Nearly every day Trouble relaxin = Nearly every day Being so restless that it is hard to sit still: 1 = Several days Becoming easily annoyed or irritable: 2 = More than half the days Feeling afraid as if something awful might happen: 3 = Nearly every day Total ZEYAD-7 score (0-4 normal; 5-9 mild; 10-14 moderate; 15-21 severe): 17 Source: Developed by Drs. Valeriano Campuzano, Smitha Mayfield, Ronald Caballero and colleagues, with an educational tyrone from [employer]. ZEYAD-7 Assessment Billing ZEYAD-7 Assessment Tool: ZEYAD-7 Assessment 59761 Review of Systems Const Details: - Cardiovascular: Reports atrial fibrillation. Denies chest pain or palpitations. - Neurological: Reports insomnia. Denies headaches or dizziness. - Gastrointestinal: Reports GERD and use of ZenPep for digestion. Denies abdominal pain or nausea. - Endocrine: Reports diabetes mellitus with recent A1c of 6.3. Denies hypoglycemic episodes. All systems reviewed & are unremarkable except as noted in HPI and below Physical exam (Primary Care) Vital Signs: Last Vital Signs Temp 98.2 F 01/09/25 14:36 Pulse 75 01/09/25 14:36 Resp 14 01/09/25 14:36 BP 135/69 01/09/25 14:36 Pulse Ox 96 01/09/25 14:36 Oxygen Delivery Method Room Air 01/09/25 14:36 Care Plan Goal for BP management: <140/90 at Goal BMI result Body Mass Index 25.8 BMI Assessment/Plan discussion: High BMI High, discussed plan: lifestyle, weight reduction, dietary, physical activity, alcohol moderation and other Tobacco/Smoking Status: Tobacco use Status Tobacco use date assessed 11/14/24 01/09/25 14:38 Patient Tobacco Use Status Current everyday Tobacco 01/09/25 14:38 Tobacco use type Cigarette 01/09/25 14:38 PHQ-9: PHQ-9 Score PHQ-9: Total score 15 01/09/25 14:38 Depression Screening Interpretation: Positive Depression Screening Follow-up: Existing condition and In treatment Thrive Assessment: Date of Thrive Assessment Date Thrive assessed 11/14/24 01/09/25 14:38 Currently or been in a relationship where the following occur: No concerns reported Const Other: Appearance: Alert. Oriented X3. No acute distress. Head: Normal external exam. Normocephalic. Atraumatic. Eyes: Pupils are equal, round, and reactive to light. Extraocular movements intact. Conjunctiva and sclera normal. Eyelids normal. Throat: Pharynx normal. Uvula midline. Moist mucous membranes. Neck: Normal inspection. Neck supple. Full range of motion. Cardiovascular: Normal heart rate and rhythm. Respiratory: No respiratory distress. Painless inspiration. Back:Full range of motion noted. Skin: Skin warm and dry. Normal skin color. Normal skin turgor. No rashes/lesions/lacerations noted. Extremities:Extremities exhibit normal range of motion. Neuro: Oriented X 3. No motor deficit. No sensory deficit. Reflexes normal. Office Procedures Flu Questionnaire Does the patient have a severe egg allergy?: No Does the patient have severe life threatening allergies?: No Does the patient have a fever or illness today?: No Has the patient ever had Guillain-[place] Syndrome?: No Has the patient ever had any past reaction to a flu shot?: No Immunizations Fluarix [id number] (PF) 45 mcg (15 mcg x 3)/0.5 mL IM syringe Performing Provider: Angelica Pena PA-C [facility] Documented (not given) by: LARISA Wells on 01/09/25 14:55 Reason Not Given: Patient Refused Coding Level of Care Code Est Pt Level 4 (24419) Complex EM visit Add On G2211 Diagnoses Atrial fibrillation I48.91 Insomnia G47.00 Hyperlipidemia E78.5 Vitamin D deficiency E55.9 Benign paroxysmal vertigo, bilateral H81.13 Generalized anxiety disorder F41.1 History of pancreatic cancer Z85.07 Type 2 diabetes mellitus with hemoglobin A1c goal of less than 7.0% E11.9 History of hepatitis Z86.19 Diverticulitis K57.92 Hiatal hernia K44.9 Chronic pain G89.29 Tinnitus H93.19 Additional Codes ZEYAD-7 Assessment Billing - ZEYAD-7 Assessment Tool: ZEYAD-7 Assessment 51720 ([id number]) PHQ-9 - 99711 - PHQ-9 Billing: Yes ([id number]) Time Spent (min) 50 Assessment & Plan Assessment & Plan (1) Atrial fibrillation: Code(s): I48.91 - Unspecified atrial fibrillation Category: Medical Plan: The patient is on Eliquis for atrial fibrillation, and a 90-day supply with three refills was provided to ensure continuity of care, especially during the physician's upcoming vacation. (2) Insomnia: Code(s): G47.00 - Insomnia, unspecified Category: Medical Plan: The patient uses Ambien for insomnia, and a refill was discussed to manage his symptoms effectively. (3) Hyperlipidemia: Code(s): E78.5 - Hyperlipidemia, unspecified Category: Medical Plan: The patient is on atorvastatin for hyperlipidemia, and no changes to the current regimen were discussed. (4) Vitamin D deficiency: Code(s): E55.9 - Vitamin D deficiency, unspecified Category: Medical Plan: The patient continues to take vitamin D supplements to manage his deficiency. (5) Benign paroxysmal vertigo, bilateral: Code(s): H81.13 - Benign paroxysmal vertigo, bilateral Category: Medical Plan: The patient is on finasteride for benign prostatic hyperplasia, and no changes were made to his treatment plan. (6) Generalized anxiety disorder: Code(s): F41.1 - Generalized anxiety disorder Category: Medical Plan: The patient is treated with fluoxetine for generalized anxiety disorder, and his current management plan remains unchanged. (7) History of pancreatic cancer: Comment: Treated at [facility] with Neoadjuvant folfirinox followed by Whipple procedure in August 2018 and an abbreviated course of radiation and capecitabin, stopped due to abdominal pain and anorexia. The patient has had no evidence of pancreatic cancer recurrence over the past 5 0.5 years. Code(s): Z85.07 - Personal history of malignant neoplasm of pancreas Category: Medical Plan: The patient underwent a Whipple procedure for pancreatic cancer and continues to use ZenPep to aid digestion. (8) Type 2 diabetes mellitus with hemoglobin A1c goal of less than 7.0%: Code(s): E11.9 - Type 2 diabetes mellitus without complications Category: Medical Plan: The patient's diabetes is managed with Actos, and his recent A1c was 6.3, indicating good control. (9) History of hepatitis: Code(s): Z86.19 - Personal history of other infectious and parasitic diseases Category: Medical Plan: The patient has a history of hepatitis, was treated in the past by gastroenterology he reports and no further interventions were discussed during the visit. (10) Diverticulitis: Code(s): K57.92 - Diverticulitis of intestine, part unspecified, without perforation or abscess without bleeding Category: Medical Plan: The patient has a history of diverticulosis no evidence of acute diverticulitis, patient does not feel like he needs to go to GI at this time. (11) Hiatal hernia: Code(s): K44.9 - Diaphragmatic hernia without obstruction or gangrene Category: Medical Plan: The patient has a hiatal hernia and is not seeking further surgical intervention at this time. Patient did not feel like he wanted surgery or wanted to go to GI at this time. (12) Chronic pain: Code(s): G89.29 - Other chronic pain Category: Medical Plan: Patient is on a chronic pain contract that he signed today. He is agreeable to random pill counts. He is agreeable to random drug screenings. He is agreeable to 30 day appointments. He is agreeable to being prescribed Narcan which was given to him today. He is currently on Sullivan 1 1 tablet 5 mg x 325 mg he takes 1 daily. This was decreased from 3 times a day. (13) Tinnitus: Code(s): H93.19 - Tinnitus, unspecified ear Category: Medical Plan: Patient reports ringing in bilateral ears it has been constant for quite some time hears requesting a hearing exam and a ENT referral placed at this time. Plan Plan Patient was informed and verbally consented to the use of an ambient scribe for clinic note documentation during this visit. 1. Atrial Fibrillation The patient is on Eliquis for atrial fibrillation, and a 90-day supply with three refills was provided to ensure continuity of care, especially during the physician's upcoming vacation. 2. Insomnia The patient uses Ambien for insomnia, and a refill was discussed to manage his symptoms effectively. 3. Hyperlipidemia The patient is on atorvastatin for hyperlipidemia, and no changes to the current regimen were discussed. 4. Vitamin D Deficiency The patient continues to take vitamin D supplements to manage his deficiency. 5. Benign Prostatic Hyperplasia The patient is on finasteride for benign prostatic hyperplasia, and no changes were made to his treatment plan. 6. Generalized Anxiety Disorder The patient is treated with fluoxetine for generalized anxiety disorder, and his current management plan remains unchanged. 7. Gastroesophageal Reflux Disease (Gerd) The patient is on pantoprazole for GERD, and no adjustments to his medication were discussed. 8. Pancreatic Cancer (Post-Whipple Procedure) The patient underwent a Whipple procedure for pancreatic cancer and continues to use ZenPep to aid digestion. 9. Diabetes Mellitus The patient's diabetes is managed with Actos, and his recent A1c was 6.3, indicating good control. 10. Hepatitis The patient has a history of hepatitis, and no further interventions were discussed during the visit. 11. Diverticulitis The patient has a history of diverticulitis, and no new treatment plans were discussed. 12. Hiatal Hernia The patient has a hiatal hernia and is not seeking further surgical intervention at this time. During the visit, we discussed the patient's medication refills, including Eliquis for atrial fibrillation and Ambien for insomnia. I advised the patient to notify me ahead of time for refills, especially during my vacation period. We also reviewed his current management plans for hyperlipidemia, vitamin D deficiency, benign prostatic hyperplasia, generalized anxiety disorder, GERD, and diabetes mellitus, ensuring all medications are up to date. Orders: Orders Influenza [id number] Immunization Today Z23 - Encounter for immunization Drug Screen Urine Today G89.29 - Other chronic pain Referrals Speech and Hearing Referral Z01.10 - Encounter for examination of ears and hearing without abnormal findings Ear/Nose/Throat Referral H93.19 - Tinnitus, unspecified ear, Z01.10 - Encounter for examination of ears and hearing without abnormal findings Medications: Changed From apixaban (Eliquis) 5 mg PO BID To apixaban (Eliquis) 5 mg PO BID 180 tabs 3RF 90 days Patient Instructions: - Continue taking all prescribed medications as directed. - Schedule a follow-up appointment in one month for routine check-up and A1c testing. - Notify the office a week in advance for any medication refills needed during the holiday season.
--- OUTSIDE RECORDS SUMMARY | 2025-01-09 17:02 | XMS_ITS | Patient Health Record ---
Author Organization [facility] Address [address] [place] [id number] Care Team Providers Care Insurance Administrative Assistant Name Role Phone LISA RAMÍREZ PA-C Primary Care Provider Valeriano Newberry Unavailable [phone] Allergies Allergen (clinical drug ingredient) Drug/Non Drug [...] Problem Status W/U Status Risk Notes Problem [id number] Encounter for screening for malignant neoplasm of colon (Z12.11) Active confirmed Problem Screening for malignant neoplasm of rectum ([id number]) Encounter for screening for malignant neoplasm of rectum (Z12.12) Active confirmed Problem [id number] Chronic hepatitis C without hepatic coma (B18.2) [...] Start Date Coverage End Date MEDICARE OF [place] [address] [place] [id number] CHRISTIANE MEJIA Self - patient is the insured MEDICAID OF [place] [address] [place] [id number] CHRISTIANE MEJIA Self - patient is the insured Medical (General) History Medical History History ICD Code Chronic hepatits C--s/p 20 w eeks of Rx in 2005 with pegylated interferon and ribavirin for hepatitis C genotype 3--- his liver biopsy in 2004 revealed a I/IV fibrosis and grade 2/4 inflammation Depression Denies ,DM,CVA,Lung disease,renal diseas e [place] in 2007--had 1 cardiac stent placed-f ine since HTN Surgical History Surgery Date(Month/Year) appendectomy hernia surgery
== END 2025-01-09 15:26 | disposition home or self-care (01) ==
LOC: HO.HMCSH 14:18
PROVIDERS: PCP Physician Assistant Medical; Visit Provider Physician Assistant Medical
DX: I48.91 Unspecified atrial fibrillation (principal); G47.00 Insomnia, unspecified; E78.5 Hyperlipidemia, unspecified; E55.9 Vitamin D deficiency, unspecified; H81.13 Benign paroxysmal vertigo, bilateral; F41.1 Generalized anxiety disorder; Z85.07 Personal history of malignant neoplasm of pancreas; E11.9 Type 2 diabetes mellitus without complications; Z86.19 Personal history of other infectious and parasitic diseases; K57.92 Diverticulitis of intestine, part unspecified, without perforation or abscess without bleeding; K44.9 Diaphragmatic hernia without obstruction or gangrene; G89.29 Other chronic pain; H93.19 Tinnitus, unspecified ear; Z23 Encounter for immunization

== ENCOUNTER 2025-01-09 14:18 | Outpatient (REF) | payer MEDICARE, MEDICAID, SELFPAY ==
[2025-01-09 16:45] LABS: Cannabinoid Screen Urine Not Detected (Not Detect)
== END 2025-01-09 14:19 | disposition home or self-care (01) ==
LOC: HO.LAB 14:18
PROVIDERS: PCP Physician Assistant Medical; Visit Provider Physician Assistant Medical
DX: G89.29 Other chronic pain (principal); I48.91 Unspecified atrial fibrillation; G47.00 Insomnia, unspecified; E78.5 Hyperlipidemia, unspecified; E55.9 Vitamin D deficiency, unspecified; H81.13 Benign paroxysmal vertigo, bilateral; F41.1 Generalized anxiety disorder; E11.9 Type 2 diabetes mellitus without complications; K57.92 Diverticulitis of intestine, part unspecified, without perforation or abscess without bleeding; K44.9 Diaphragmatic hernia without obstruction or gangrene; H93.19 Tinnitus, unspecified ear; Z85.07 Personal history of malignant neoplasm of pancreas; Z86.19 Personal history of other infectious and parasitic diseases
CPT/HCPCS: 80307; 90471; 96127; 99212

== ENCOUNTER 2025-02-15 09:20 | Outpatient (AMB) | payer MEDICARE, MEDICAID, SELFPAY ==
[2025-02-15 09:33] VITALS: BP 131/62; PULSE 74; RESP 14; TEMP 36.4; O2SAT 97; BMI 25.8
--- NOTE | 2025-02-15 09:33 | MHC.PC.OV ---
Vital Signs 02/15/25 09:33 Height 5 ft 11.06 in Weight 185 lb BMI 25.8 BP 131/62 Blood Pressure Location Rt brachial Position Sitting Respiration 14 Pulse 74 Pulse Source Pulse Oximeter Temp 97.6 F Temp Source Temporal Artery Scan Pulse Oximetry (%) 97 Oxygen Delivery Method Room Air Intake Visit Reasons: 1 month fu/needs A1C Estate Planner Required: No Accompanied by: Self / Same As Patient Allergies Penicillins Allergy (Mild, Verified 02/15/25 10:08) Rash Medication List - Last Reconciled 02/15/25 by Angelica Pena PA-C alcohol swabs (Alcohol Pads) 1 pad topical DAILY apixaban (Eliquis) 5 mg PO BID 90 days atorvastatin 20 mg PO DAILY blood sugar diagnostic (FreeStyle Lite Strips) 1 strip miscellaneous DAILY blood-glucose meter (FreeStyle Lite Meter kit) Check glucose daily cholecalciferol (vitamin D3) 50 mcg PO DAILY finasteride 5 mg PO DAILY 90 days fluoxetine 40 mg PO QAM hydrocodone-acetaminophen 5-325 mg 1 tab PO DAILY lancets (FreeStyle Lancets) 1 gauge miscellaneous DAILY pgoxpo-povxvgoy-raxaknn (pork) 15,000-47,000 -63,000 unit (Zenpep) 1 cap PO DAILY 90 days pantoprazole 40 mg PO DAILY pioglitazone 30 mg PO DAILY zolpidem 10 mg PO BEDTIME Tobacco use date assessed: 11/14/24 Dental Screening Dental Screen Date: 11/14/24 HPI 1 month fu/needs A1C HPI Details The patient is a 69-year-old male presenting for follow-up and medication management, with new complaints of unilateral mydriasis and changes in bowel habits. 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 He denies any associated dizziness or headache. Approximately two weeks ago, the patient experienced an episode of fecal incontinence. Since then, he has noticed that his stools are small, white, and have an unusual odor. He also reports recent abdominal pain and bloating. The patient reports a recent dietary change, having eliminated junk food. The patient has a history of pancreatic and prostate cancer, diverticulitis, a hiatal hernia, a liver hemangioma, and kidney stones. A CT scan two months ago showed colonic diverticulosis and mild constipation. His last colonoscopy was in 2016. His HbA1c is 6.1, blood pressure is 131/62 mmHg, and liver enzymes were normal two months prior. He is compliant with Eliquis for a history of blood clots and takes hydrocodone PRN for pain. Social History - Employment: The patient is a retired registered safety engineer. - Diet: Reports he recently cut out junk food, such as eating two to three cupcakes daily. [facility] Medical History (Updated 02/15/25 @ 10:18 by Angelica Pena PA-C) Healthcare maintenance Mydriasis Abnormal stools Diverticulitis History of hepatitis Generalized anxiety disorder Hyperlipidemia Insomnia Atrial fibrillation Evaluation of hearing impairment Chronic pain Diverticulosis Hiatal hernia Lesion of liver Aortic atherosclerosis Osteopenia Emphysema lung COPD (chronic obstructive pulmonary disease) Vitamin D deficiency Encounter for screening for cardiovascular disorders Type 2 diabetes mellitus with hemoglobin A1c goal of less than 7.0% Ischemic cardiomyopathy Coronary artery disease Tinnitus Anticoagulated on Eliquis History of pulmonary embolism Rheumatoid arthritis Benign paroxysmal vertigo, bilateral Acute cerebellar ataxia Essential tremor History of pancreatic cancer Cough Dizziness of unknown cause Gait disturbance Chronic abdominal pain Anxiety Elevated cholesterol GERD (gastroesophageal reflux disease) Hx of hepatitis C Prostate cancer Prediabetes Pancreatic cancer Surgical History History of cholecystectomy History of Whipple procedure Hx of right inguinal hernia repair Hx of colonoscopy (~2015) Hx of appendectomy Family History Father Lung cancer Mother High blood pressure Social History Housing: Apartment Alcohol intake: current Alcohol intake frequency: does not drink Patient Tobacco Use Status: Current everyday Tobacco user Tobacco use type: Cigarette Cigarettes Per Day: 10 service: No Current occupational status: retired Cognitive needs: Yes (cane) Hearing needs: No Vision needs: Yes (readidng glasses) Questionnaire PHQ-9 Over the last 2 weeks, how often have you been bothered by any of the following problems? 1. Little interest or pleasure in doing things: nearly every day 2. Feeling down, depressed, or hopeless: more than half the days 3. Trouble falling or staying asleep, or sleeping too much: several days 4. Feeling tired or having little energy: nearly every day 5. Poor appetite or overeating: nearly every day 6. Feeling bad about yourself - or that you are a failure or have let yourself or your family down: not at all 7. Trouble concentrating on things, such as reading the newspaper or watching television: not at all 8. Moving or speaking so slowly that other people could have noticed. Or the opposite - being so fidgety or restless that you have been moving around a lot more than usual: nearly every day 9. Thoughts that you would be better off or of hurting yourself in some way: not at all Total score: 15 Depression Screening Interpretation: Positive Depression Screening Follow-up: Existing condition and In treatment Depression Screening Done: Yes 42002 - PHQ-9 Billing: Yes Source: Developed by Drs. Valeriano Campuzano, Smitha Mayfield, Ronald Caballero and colleagues, with an educational tyrone from [employer]. Thrive Questionnaire Date Thrive assessed: 11/14/24 I am a: Patient What is your living situation today?: I have a steady place to live Within the past 12 months, did the food you bought not last and you didn't have the money to get more?: Never true Within the past 12 months, did you worry whether your food would run out before you got money to buy more?: Never true Do you have trouble paying for medicines?: No Do you have trouble getting transportation to medical appointments?: No Do you have trouble paying your heating and electricity bill?: No Do you have trouble taking care of your child, family member or friend?: No Do you have trouble with day-to-day activities such as bathing, preparing meals, shopping, managing finances, etc.?: No Are you currently unemployed and looking for a job?: No Are you interested in more education?: No Please select the resources that you would like help with: None Currently or been in a relationship where the following occur: No concerns reported THRIVE Score: 0 AUDIT C Alcohol Use Questionnaire (AUDIT-C) 1. How often do you have a drink containing alcohol?: Never 3. How often do you have six or more drinks on one occasion?: Never Total Score: 0 Score Reviewed/Action Taken: No ZEYAD-7 AMB Questionnaire ZEYAD-7 Date ZEYAD - 7 assessed: 11/14/24 Feeling nervous, anxious, or on edge: 3 = Nearly every day Not being able to stop or control worryin = More than half the days Worrying too much about different things: 3 = Nearly every day Trouble relaxin = Nearly every day Being so restless that it is hard to sit still: 1 = Several days Becoming easily annoyed or irritable: 2 = More than half the days Feeling afraid as if something awful might happen: 3 = Nearly every day Total ZEYAD-7 score (0-4 normal; 5-9 mild; 10-14 moderate; 15-21 severe): 17 Source: Developed by Drs. Valeriano Campuzano, Smitha Mayfield, Ronald Caballero and colleagues, with an educational tyrone from [employer]. ZEYAD-7 Assessment Billing ZEYAD-7 Assessment Tool: ZEYAD-7 Assessment 49189 Review of Systems Const Details: - Eyes: Reports unilateral mydriasis after medication use and a history of recurrent eye pressure. Denies headache or dizziness. - Gastrointestinal: Reports a single episode of fecal incontinence two weeks ago, followed by a change in stool to a small, white appearance with an unusual odor. Reports abdominal pain and bloating. Denies issues related to recent dietary changes. - Genitourinary: Reports taking finasteride for prostate issues. - Constitutional: Reports otherwise feeling well. All systems reviewed & are unremarkable except as noted in HPI and below Physical exam (Primary Care) Vital Signs: Last Vital Signs Temp 97.6 F 02/15/25 09:33 Pulse 74 02/15/25 09:33 Resp 14 02/15/25 09:33 BP 131/62 02/15/25 09:33 Pulse Ox 97 02/15/25 09:33 Oxygen Delivery Method Room Air 02/15/25 09:33 Care Plan Goal for BP management: <140/90 at Goal BMI result Body Mass Index 25.8 BMI Assessment/Plan discussion: High BMI High, discussed plan: lifestyle, weight reduction, dietary, physical activity, alcohol moderation and other Tobacco/Smoking Status: Tobacco use Status Tobacco use date assessed 11/14/24 02/15/25 09:42 Patient Tobacco Use Status Current everyday Tobacco 02/15/25 09:42 Tobacco use type Cigarette 02/15/25 09:42 PHQ-9: PHQ-9 Score PHQ-9: Total score 15 02/15/25 09:48 Depression Screening Interpretation: Positive Depression Screening Follow-up: Existing condition and In treatment Thrive Assessment: Date of Thrive Assessment Date Thrive assessed 11/14/24 02/15/25 09:42 Currently or been in a relationship where the following occur: No concerns reported Const Other: Appearance: Alert. Oriented X3. No acute distress. Head: Normal external exam. Normocephalic. Atraumatic. Eyes: Pupils are unequal, with one pupil dilated. Reactive to light bilaterally. Normal funduscopic exam. Extraocular movements intact. Conjunctiva and sclera normal. Eyelids normal. Throat: Moist mucous membranes. Neck: Normal inspection. Neck supple. Full range of motion. Cardiovascular: Normal heart rate and rhythm. Respiratory: No respiratory distress. Painless inspiration. Abdomen: Soft and mild tenderness diffusely. No distention noted. No organomegaly noted. Back: Full range of motion noted. Skin: Skin warm and dry. Normal skin color. Extremities: Extremities exhibit normal range of motion. Office Meds naloxone 4 mg/actuation nasal spray Performing Provider: Angelica Pena PA-C [facility] Administered by: Angelica Pena PA-C on 02/15/25 10:14 Dose Route Admin Location Dispensed Lot Number Expiration Date [facility] Physician Practice Administrator 4 mg intranasal 1 ea Total Dispensed Waste 1 ea 0 % Comments: given to take home Results AMB Hemoglobin A1c AMB Hemoglobin A1c 6.1 % Last Edit by LARISA Wells on 02/15/25 09:50 Results Reviewed Results Reviewed: Laboratory Last Values Hgb A1c (Clinic) 6.1 % (4.0-6.0) H 02/15/25 09:48 - Labs: HbA1c is 6.1. Liver enzymes were normal two months prior. - Imaging: A CT scan from two months ago showed colonic diverticulosis, mild constipation, a hiatal hernia, a liver hemangioma, and kidney stones. The pancreas appeared fine. Coding Level of Care Code Est Pt Level 4 (79274) Complex EM visit Add On G2211 Diagnoses Abnormal stools R19.5 Mydriasis H57.04 Type 2 diabetes mellitus with hemoglobin A1c goal of less than 7.0% E11.9 Chronic pain G89.29 Healthcare maintenance Z00.00 Additional Codes ZEYAD-7 Assessment Billing - ZEYAD-7 Assessment Tool: ZEYAD-7 Assessment 75165 ([id number]) PHQ-9 - 18062 - PHQ-9 Billing: Yes ([id number]) Assessment & Plan Assessment & Plan (1) Abnormal stools: Code(s): R19.5 - Other fecal abnormalities Category: Medical Plan: The patient's new onset of pale, small stools and abdominal pain is concerning, particularly given his history of diverticulosis, which was confirmed on a CT scan two months ago. Although a recent dietary change was noted, the symptoms are more suspicious for an inflammatory or infectious process. Recent labs showing normal liver enzymes make a primary hepatobiliary cause less likely. Will obtain a stool sample to rule out an infection. The patient was advised to call if his abdominal pain worsens, at which point a trial of Augmentin will be considered for a potential diverticulitis flare. A repeat CT scan is deferred at this time, and a refill for Zenpep was provided. (2) Mydriasis: Code(s): H57.04 - Mydriasis Category: Medical Plan: The patient's unilateral dilated pupil is likely a pharmacological effect from using eye drops. While a TIA of the eye is a remote possibility, the history and lack of associated neurological symptoms make this less likely. Advised the patient to monitor the symptom and follow up with his eye doctor if it does not resolve. (3) Type 2 diabetes mellitus with hemoglobin A1c goal of less than 7.0%: Code(s): E11.9 - Type 2 diabetes mellitus without complications Category: Medical Plan: The patient's diabetes is well-controlled, with a recent HbA1c of 6.1. Continue current management. A 90-day supply of pioglitazone (Actos) with three refills was prescribed. Follow-up is scheduled in three months. (4) Chronic pain: Code(s): G89.29 - Other chronic pain Category: Medical Plan: The patient's chronic pain is stable on hydrocodone once daily as needed. Provided a 60-day supply of hydrocodone to align with the new three-month follow-up schedule for controlled substances. (5) Healthcare maintenance: Code(s): Z00.00 - Encounter for general adult medical examination without abnormal findings Category: Medical Plan: Medication refills and preventative care were addressed. Prescribed 90-day supplies with refills for vitamin D and zolpidem. Advised the patient to receive a high-dose influenza vaccine. The follow-up interval was extended to every three months. Plan Plan Patient was informed and verbally consented to the use of an ambient scribe for clinic note documentation during this visit. 1. Change In Bowel Habits The patient's new onset of pale, small stools and abdominal pain is concerning, particularly given his history of diverticulosis, which was confirmed on a CT scan two months ago. Although a recent dietary change was noted, the symptoms are more suspicious for an inflammatory or infectious process. Recent labs showing normal liver enzymes make a primary hepatobiliary cause less likely. Will obtain a stool sample to rule out an infection. The patient was advised to call if his abdominal pain worsens, at which point a trial of Augmentin will be considered for a potential diverticulitis flare. A repeat CT scan is deferred at this time, and a refill for Zenpep was provided. 2. Mydriasis, Unilateral The patient's unilateral dilated pupil is likely a pharmacological effect from using eye drops. While a TIA of the eye is a remote possibility, the history and lack of associated neurological symptoms make this less likely. Advised the patient to monitor the symptom and follow up with his eye doctor if it does not resolve. 3. Type 2 Diabetes Mellitus The patient's diabetes is well-controlled, with a recent HbA1c of 6.1. Continue current management. A 90-day supply of pioglitazone (Actos) with three refills was prescribed. Follow-up is scheduled in three months. 4. Chronic Pain The patient's chronic pain is stable on hydrocodone once daily as needed. Provided a 60-day supply of hydrocodone to align with the new three-month follow-up schedule for controlled substances. 5. Health Maintenance Medication refills and preventative care were addressed. Prescribed 90-day supplies with refills for vitamin D and zolpidem. Advised the patient to receive a high-dose influenza vaccine. The follow-up interval was extended to every three months. I explained to the patient that his dilated pupil was likely caused by the eye drops he used, and I advised him to see his eye doctor if it does not improve. We discussed his recent changes in bowel habits and abdominal pain; given his history of diverticulosis, I suspect this may be a mild flare. I informed him that we will start by ordering a stool sample and that a repeat CT scan is not necessary since one was done recently. I instructed him to call if the pain worsens, at which point we would consider starting antibiotics. We also reviewed his chronic medications and provided refills. I notified him that his follow-up appointments for controlled substance prescriptions are now extended to every three months instead of monthly, which he agreed to. Finally, I recommended he receive the high-dose flu vaccine. Orders: Orders Influenza [id number] Immunization Today Z23 - Encounter for immunization AMB Naloxone Hydrochloride Administration Today G89.29 - Other chronic pain AMB Hemoglobin A1c Today E11.9 - Type 2 diabetes mellitus without complications GI Panel Today R19.5 - Other fecal abnormalities Medications: New pioglitazone 30 mg PO DAILY 90 tabs 3RF Fluarix [id number] (PF) (flu vac ts 2024-(6mos up)-PF) 0.5 mL IM ONCE 0.5 mL 0RF NS Z23 - Encounter for immunization Changed From uzvuob-lbxzfsfr-eoavhxy (pork) 15,000-47,000 -63,000 unit (Zenpep) 1 cap PO TID 90 caps 0RF To tczzxh-dbkvystw-fnshsnl (pork) 15,000-47,000 -63,000 unit (Zenpep) 1 cap PO DAILY 90 caps 3RF 90 days Refilled cholecalciferol (vitamin D3) 50 mcg PO DAILY 90 caps 3RF hydrocodone-acetaminophen 5-325 mg Partial Fill upon patient request. 1 tab PO DAILY 60 tabs 0RF zolpidem 10 mg PO BEDTIME 90 tabs 3RF Patient Instructions: - Your dilated pupil is likely from the old eye drops you used. If it does not get better on its own, please see your eye doctor. - Please provide a stool sample using the cup I gave you to check for any infection. You can bring it back to the clinic whenever you are able. - Call our office if your stomach pain gets worse. We may prescribe an antibiotic for you if needed. - get the high-dose flu shot, but do not get it here at the clinic. - I have sent refills for Vitamin D, Zenpep, Hydrocodone, Pioglitazone (for diabetes), and Zolpidem (for sleep) to your pharmacy, [facility] on [facility] [place]. - You no longer need to come in every month. Your next follow-up appointment will be in three months.
--- OUTSIDE RECORDS SUMMARY | 2025-02-15 10:20 | XMS_ITS | Patient Health Record ---
Author Organization [facility] Address [address] [place] [address] Care Team Providers Care Fire Prevention Captain Name Role Phone LISA RAMÍREZ PA-C Primary Care Provider Valeriano Newberry Unavailable [phone] Allergies Allergen (clinical drug ingredient) Drug/Non Drug Allergy documented on EMR Reaction Allergy Type Onset Date Status Penicillin Unknown Drug Allergy Active Reason For Referral No Information Medications Medication SIG (Take, Route, Frequency, Duration) Notes Start Date End Date Status Simvastatin Active Metoprolol Succinate Active Colyte w Flavor Packs 240 GM as directed Orally as directed; Duration: 1 day(s) 05/18/2015 Active Lisinopril Active Prozac Active Problems Problem Type SNOMED Code ICD Code Onset Dates Problem Status W/U Status Risk Notes Problem Screening for malignant neoplasm of colon ([id number]) Encounter for screening for malignant neoplasm of colon (Z12.11) Active confirmed Problem Screening for malignant neoplasm of rectum ([id number]) Encounter for screening for malignant neoplasm of rectum (Z12.12) Active confirmed Problem Chronic hepatitis C (906305733) Chronic hepatitis C without hepatic coma (B18.2) [...] Start Date Coverage End Date MEDICARE OF [place] [address] [place] [id number] CHRISTIANE MEJIA Self - patient is the insured [id number] [address] [place] [phone] [id number] CHRISTIANE MEJIA Self - patient is the insured Medical (General) History Medical History History ICD Code Chronic hepatits C--s/p 20 w eeks of Rx in 2005 with pegylated interferon and ribavirin for hepatitis C genotype 3--- his liver biopsy in 2004 revealed a I/IV fibrosis and grade 2/4 inflammation Depression Denies ,DM,CVA,Lung disease,renal diseas e [place] in 2007--had 1 cardiac stent placed-f ine since HTN Surgical History Surgery Date(Month/Year) appendectomy hernia surgery
== END 2025-02-15 10:09 | disposition home or self-care (01) ==
LOC: HO.HMCSH 09:20
PROVIDERS: PCP Physician Assistant Medical; Visit Provider Physician Assistant Medical
DX: R19.5 Other fecal abnormalities (principal); H57.04 Mydriasis; E11.9 Type 2 diabetes mellitus without complications; G89.29 Other chronic pain; Z00.00 Encounter for general adult medical examination without abnormal findings

== ENCOUNTER → 2025-02-15 09:20 | Outpatient (BNVA) | payer MEDICARE, MEDICAID, SELFPAY | PROVIDERS: PCP Physician Assistant Medical; Visit Provider Physician Assistant Medical | DX: Z00.00 Encounter for general adult medical examination without abnormal findings (principal); E11.9 Type 2 diabetes mellitus without complications; H57.04 Mydriasis; R19.5 Other fecal abnormalities; Z13.31 Encounter for screening for depression; G89.29 Other chronic pain | CPT/HCPCS: 83036; 96127; 99212 ==

== ENCOUNTER 2025-03-18 14:03 | Outpatient (REF) | payer MEDICARE, MEDICAID, SELFPAY ==
[2025-03-18 15:27] LABS: Prostate Specific Antigen 4.12 ng/mL (<0.05-4.0)
== END 2025-03-18 14:04 | disposition home or self-care (01) ==
LOC: HO.LAB 14:03
PROVIDERS: PCP Physician Assistant Medical; Visit Provider Urology
DX: C61 Malignant neoplasm of prostate (principal); Z12.5 Encounter for screening for malignant neoplasm of prostate
CPT/HCPCS: 36415; 84153